=== PATIENT | male | born 1975 | race Caucasian/White ===

== ENCOUNTER 2016-02-25 16:08 | Inpatient (IN) | payer OTHER ==
[2016-02-25] MEDS ORDERED: SODIUM CHLORIDE 1,000 ML IV STA (16:26)
[2016-02-25] MEDS ORDERED: METOCLOPRAMIDE HCL INJECTION 10 MG/2 ML VIAL IVPB ONE ×2 (16:26→23:10)
[2016-02-25] MEDS ORDERED: FAMOTIDINE 20 MG/50 ML IVPB 50 ML IVPB ONE ×2 (16:26→16:30)
[2016-02-25] MEDS ORDERED: METOCLOPRAMIDE HCL INJECTION 10 MG/2 ML VIAL ONE (16:30)
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
[2016-02-25 16:44] VITALS: BMI 22.8
[2016-02-25] MEDS ORDERED: ONDANSETRON 4 MG/2 ML VIAL IVPB ONE ×2 (16:58→20:25)
[2016-02-25] MEDS ORDERED: morphine CARPU-JECT 4 MG/1 ML DISP.SYRIN IVPUSH ONE ×3 (17:20→23:09)
[2016-02-25] MEDS ORDERED: morphine CARPU-JECT 4 MG/1 ML DISP.SYRIN ONE ×2 (17:30→20:26)
[2016-02-25] MEDS ORDERED: ONDANSETRON 4 MG/2 ML VIAL ONE ×2 (17:32→20:26)
[2016-02-25 17:37] LABS: BASOPHIL 0.4 % (0-2.0); MCH 27.5 pg (25.7-33.7); MEAN CELL VOLUME 83.5 fl (80-96); NEUTROPHILS 85.2 % (42.8-82.8); PLATELET COUNT 363 K/MM3 (134-434); RDW 12.6 % (11.9-15.9); WHITE BLOOD COUNT 9.6 K/mm3 (4.0-10.0)
[2016-02-25 18:09] LABS: ALBUMIN 3.4 g/dl (3.4-5.0); ANION GAP 16 (8-16); CALCIUM 8.5 mg/dL (8.5-10.1); CO2 17 mmol/L (21-32); CREATININE 0.7 mg/dL (0.7-1.3); GLUCOSE,RANDOM 279 mg/dL (74-106); SGOT/AST 8 U/L (15-37); SGPT/ALT 24 U/L (12-78)
[2016-02-25 18:14] LABS: ALK PHOS 118 U/L (45-117); BILIRUBIN,TOTAL 0.8 mg/dL (0.2-1.0); TOT PROT 6.8 g/dl (6.4-8.2); TROPONIN I < 0.02 ng/ml (0.00-0.05)
[2016-02-25 19:06] LABS: ACETONE SERUM POSITIVE MODERATE 2 (NEGATIVE)
[2016-02-25] MEDS ORDERED: CEFTRIAXONE 1,000 MG in DEXTROSE 5%-WATER - 50 ML IVPB ONE (20:30)
[2016-02-25] MEDS ORDERED: ACETAMINOPHEN 1000 MG/100 ML VIAL (NON FORMULARY) IVPB ONE (20:30)
[2016-02-25] MEDS ORDERED: CEFTRIAXONE 50 ML ONE (20:33)
[2016-02-25] MEDS ORDERED: ACETAMINOPHEN INJECTION 100 ML IVPB ONE (20:33)
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
[2016-02-25] MEDS ORDERED: morphine CARPU-JECT 4 MG/1 ML DISP.SYRIN IVPUSH PRN (21:53)
[2016-02-25] MEDS ORDERED: ONDANSETRON 4 MG/2 ML VIAL IVPUSH PRN (21:54)
[2016-02-25] MEDS ORDERED: SODIUM CHLORIDE 1,000 ML IV SCH (22:00)
[2016-02-25 22:07] LABS: URINE APPEARANCE CLEAR; URINE BILIRUBIN NEGATIVE (NEGATIVE); URINE COLOR STRAW; URINE GLUCOSE (UA) 3+ (NEGATIVE); URINE KETONE 2+ (NEGATIVE); URINE NITRITE NEGATIVE (NEGATIVE); URINE PROTEIN NEGATIVE (NEGATIVE); URINE UROBILINOGEN NEGATIVE E.U./dl (0.2-1.0)
[2016-02-25 22:22] LABS: URINE BLOOD 1+ (NEGATIVE); URINE LEUK ESTERASE TRACE (NEGATIVE)
[2016-02-25 22:23] LABS: URINE BACTERIA RARE /hpf (NONE SEEN); URINE RBC 3 /hpf (0-3); URINE WBC 4 /hpf (3-5)
[2016-02-26 08:18] LABS: BASOPHIL 0.8 % (0-2.0); EOSINOPHIL 0.1 % (0-4.5); MCH 28.8 pg (25.7-33.7); MCHC 34.2 g/dl (32.0-35.9); MEAN CELL VOLUME 84.2 fl (80-96); MEAN PLT VOLUME 8.2 fl (7.5-11.1); NEUTROPHILS 76.7 % (42.8-82.8); PLATELET COUNT 350 K/MM3 (134-434); RDW 12.8 % (11.9-15.9); WHITE BLOOD COUNT 10.3 K/mm3 (4.0-10.0)
[2016-02-26 08:41] LABS: CALCIUM 8.4 mg/dL (8.5-10.1); CREATININE 0.7 mg/dL (0.7-1.3)
[2016-02-26] MEDS ORDERED: CEFTRIAXONE 50 ML IVPB SCH (10:00)
[2016-02-26] MEDS ORDERED: PANTOPRAZOLE SODIUM 40 MG in SODIUM CHLORIDE 100 ML IVPB SCH (10:00)
[2016-02-26] MEDS ORDERED: FAMOTIDINE 20 MG/50 ML IVPB 50 ML IVPB SCH (10:00)
--- NOTE | 2016-02-26 10:05 | EKG ---
Test Reason : Blood Pressure : / mmHG Vent. Rate : 091 BPM Atrial Rate : 091 BPM P-R Int : 154 ms QRS Dur : 106 ms QT Int : 372 ms P-R-T Axes : 062 093 054 degrees QTc Int : 457 ms NORMAL SINUS RHYTHM RIGHTWARD AXIS BORDERLINE ECG WHEN COMPARED WITH ECG OF 25-FEB-2016 00:34, NO SIGNIFICANT CHANGE WAS FOUND Confirmed by MD MIRANDA, FELICITY ([id number]) on 02/26/2016 10:05:21 AM Referred By: Overread By: FELICITY JEAN MD
--- NOTE | 2016-02-26 10:14 | EKG ---
Test Reason : Blood Pressure : / mmHG Vent. Rate : 062 BPM Atrial Rate : 062 BPM P-R Int : 152 ms QRS Dur : 122 ms QT Int : 442 ms P-R-T Axes : 049 086 054 degrees QTc Int : 448 ms NORMAL SINUS RHYTHM NON-SPECIFIC INTRA-VENTRICULAR CONDUCTION DELAY BORDERLINE ECG WHEN COMPARED WITH ECG OF 25-FEB-2016 17:34, NO SIGNIFICANT CHANGE WAS FOUND Confirmed by MD MIRANDA, FELICITY ([id number]) on 02/26/2016 10:14:19 AM Referred By: DYLAN DE LA GARZA Overread By: FELICITY JEAN MD
[2016-02-26] MEDS ORDERED: INSULIN SLIDING SCALE (NOVOLOG) 1 VIAL SQ SCH ×2 (11:00→16:30)
[2016-02-26] MEDS ORDERED: SODIUM CHLORIDE 1,000 ML IV SCH ×3 (11:13→11:51)
[2016-02-26] MEDS ORDERED: INSULIN DETEMIR 100 UNITS/ML MDV SQ ONE ×2 (12:00→23:00)
[2016-02-26] MEDS: KCL 10 MEQ IVPB 100 ML IVPB SCH ×3 (12:08→14:16)
[2016-02-26] MEDS: METOCLOPRAMIDE HCL INJECTION 10 MG/2 ML VIAL IVPB ONE ×2 (12:25→12:27)
[2016-02-26] MEDS ORDERED: METOCLOPRAMIDE HCL INJECTION 10 MG/2 ML VIAL IVPB ONE (13:00)
[2016-02-26] MEDS ORDERED: INSULIN (NOVOLOG) ASPART 100 UNITS/ML 10ML VIAL ONE (13:02)
[2016-02-26 13:58] LABS: CALCIUM 7.3 mg/dL (8.5-10.1); CREATININE 0.6 mg/dL (0.7-1.3)
[2016-02-26] MEDS ORDERED: cefTRIAXone 1 GM/50 ML BAG (PRE-DOCKED) IVPB ONE (14:00)
[2016-02-26] MEDS ORDERED: CEFTRIAXONE 2 GM in SODIUM CHLORIDE 100 ML IVPB SCH (14:00)
[2016-02-26 14:09] LABS: ARTERIAL BLD GAS O2 SATURATION 98.2 % (90-98.9); ARTERIAL BLOOD GAS BASE EXCESS -13.6 meq/l (-2-2); ARTERIAL BLOOD GAS HCO3 11.4 meq/L (22-26)
[2016-02-26 14:10] LABS: ALLENS TEST POSITIVE; ART PUNCT SITE RIGHT RADIAL; LPM/O2% 21%; PT. ON O2? NO; TYPE OF O2 ROOM AIR
[2016-02-26 14:11] LABS: ARTERIAL BLOOD GAS pH 7.29 (7.35-7.45)
[2016-02-26] MEDS ORDERED: POTASSIUM CHLORIDE TABS 20 MEQ TABLET.ER (FP) PO ONE (14:34)
--- NOTE | 2016-02-26 14:57 | PN ---
Teaching Attending Note Name of Resident: Lukas Mccarty ATTENDING PHYSICIAN STATEMENT I saw and evaluated the patient. I reviewed the resident's note and discussed the case with the resident. I agree with the resident's findings and plan as documented. SUBJECTIVE: no fever or chills , has nausea and vomiting. has burning like chest pain all over R and L chest wall, radiating form epigastric area. denies dysuria or abd pain , no flank pain . no SOB OBJECTIVE: mild distress, vomiting at time of evaluation . AAOx3. HEENT: dry MM, pale , no LAP in neck , no facial droop CV: RRR, tachy Lungs : CTAB Abd : soft, NT, ND , NL BS . no CVA tenderness Ext : no edema ASSESSMENT AND PLAN: 40 y/o man with h/o untreated DM , who presented to ER on 02/23, diagnosed with UTI, dc on bactrim , but came back with N/V . He was found to have signs of pyelonephritis of L kidney on CT scan , also elevated sugar 1- Acute pyelonephritis : UA , and U cx from 02/23 reviewed. Group B strep growing . - cont with Ceftriaoxne - follow blood cx and final urine cx . - repeat imaging if fails to respond. 2- Untreated Dm , now in DKA, due to infection . also looks volume depleted on exam . sugar is 228, and AG increased to 21. ABG with metabolic acidosis - Start D5NS+Kcl @150 - Start insulin gtt 0.1 unit /kg/hr - Check gluc , BMP, Phos, MG q 2 hrs - Once AG is closed , can stop gtt and start SQ insulin ( long and short acting ) - Currently receiving IV Kck, will give 40 of po Kcl before starting the gtt - pt educated about need of DM treatment 3- Nicotine dependence 3/p/d - start Nicotin patch 4- dispo : transfer to ICU. spoke toDr. Cueva. pt accepted Critical Care Time/MDM Note Total Critical Care Time: 45 Critical Care Statement: The care of this patient involved high complexity decision making to prevent further life threatening deterioration of the patient 's condition and/or to evalute & treat vital organ system(s) failure or risk of failure.
--- NOTE | 2016-02-26 15:00 | PN ---
Addendum entered and electronically signed by Lukas Mccarty, RES 02/26/16 18:23 : anion gap closed, will swicth him from insulin drip to sq, change d5ns to ns Original Note: Physical Exam: SUBJECTIVE: Patient seen and examined, patient examined in morning was still complaing of nausea and vomiting. patient vomited in front of me which contain white color gastric fluid. Patient also state he had chest pain but its burning in nature, but stat ekg was done which showed sinus tachycardia. Patient blood sugar was checked and which was around 255, and anion gap was 17, K 3.3. patient started on IV fluid Ns at 100ml/hr and iV KCL was was ordered. Patient given insulin novalog and levemir sq. labs were repeat at 1 pm, patient gap increased to 21 and blood sugar decreased to 228, Patient K increased to 3.4 after getting 20meq of iv kcl and third one is in situ. patient vomiting has stopped so 40 meq oral was also given. ABG was done which showed a Ph of 7.29, bicard 11.4. decesion taken to shift patient to ICu to start on insulin drip, DNS with kcl, bgm monitoring, k , ca, mg and phos monitoring. Acetone moderate. OBJECTIVE: Vital Signs Period Temp Pulse Resp BP Sys/[place] Pulse Ox Last 24 Hr 98.3 F-98.4 F 76-81 18-20 98-152/59-92 98-98 GENERAL: The patient is awake, alert, and fully oriented, complaining of nausea HEAD: Normal with no signs of trauma. EYES: PERRL, extraocular movements intact, sclera anicteric, conjunctiva clear. No ptosis. ENT: Ears normal, nares patent, oropharynx clear without exudates, dry mucus membrane NECK: Trachea midline, full range of motion, supple. LUNGS: Breath sounds equal, clear to auscultation bilaterally, no wheezes, no crackles, HEART: tachcardia, S1, S2 normal without murmur, rub or gallop. ABDOMEN: Soft, nontender, nondistended, normoactive bowel sounds, no guarding, midline scar present from previous surgery. no renal geoff tenderness EXTREMITIES: 2+ pulses, warm, well-perfused, no edema. NEUROLOGICAL: Cranial nerves II through XII grossly intact., gait not observed. PSYCH: Normal mood, normal affect. SKIN: Warm, dry, normal turgor, no rashes or lesions noted Laboratory Results - last 24 hr 02/25/16 02/26/16 02/26/16 22:22 06:03 07:45 WBC 10.3 H RBC 4.70 Hgb 13.5 Hct 39.6 MCV 84.2 MCHC 34.2 RDW 12.8 Plt Count 350 MPV 8.2 Neutrophils % 76.7 Lymphocytes % 17.5 D Monocytes % 4.9 D Eosinophils % 0.1 D Basophils % 0.8 Puncture Site ABG pH ABG pCO2 at Pt Temp ABG pO2 at Pt Temp ABG HCO3 ABG O2 Sat (Measured) ABG O2 Content ABG Base Excess Andrea Test O2 Delivery Device Oxygen Flow Rate Sodium Potassium Chloride Carbon Dioxide Anion Gap BUN Creatinine POC Glucometer 212 Random Glucose Hemoglobin A1c % Lactic Acid 1.387 Calcium 02/26/16 02/26/16 02/26/16 07:45 07:45 12:58 WBC RBC Hgb Hct MCV MCHC RDW Plt Count MPV Neutrophils % Lymphocytes % Monocytes % Eosinophils % Basophils % Puncture Site ABG pH ABG pCO2 at Pt Temp ABG pO2 at Pt Temp ABG HCO3 ABG O2 Sat (Measured) ABG O2 Content ABG Base Excess Andrea Test O2 Delivery Device Oxygen Flow Rate Sodium 136 Potassium 3.3 L Chloride 107 Carbon Dioxide 12 L D Anion Gap 17 H BUN 10 D Creatinine 0.7 POC Glucometer 255 Random Glucose 255 H Hemoglobin A1c % 13.2 H Lactic Acid Calcium 8.4 L 02/26/16 02/26/16 13:10 13:55 WBC RBC Hgb Hct MCV MCHC RDW Plt Count MPV Neutrophils % Lymphocytes % Monocytes % Eosinophils % Basophils % Puncture Site Right radial ABG pH 7.29 L ABG pCO2 at Pt Temp 24.6 L ABG pO2 at Pt Temp 133.0 H ABG HCO3 11.4 L* ABG O2 Sat (Measured) 98.2 ABG O2 Content 17.2 ABG Base Excess -13.6 L* Andrea Test Positive O2 Delivery Device Room air Oxygen Flow Rate 21% Sodium 141 Potassium 3.4 L Chloride 107 Carbon Dioxide 13 L Anion Gap 21 H BUN 10 Creatinine 0.6 L POC Glucometer Random Glucose 299 H Hemoglobin A1c % Lactic Acid Calcium 7.3 L ABG Results ABG pH 7.29 (7.35-7.45) L 02/26/16 13:55 ABG pCO2 at Pt Temp 24.6 mmHg (35-45) L 02/26/16 13:55 ABG pO2 at Pt Temp 133.0 mmHg (80-100) H 02/26/16 13:55 ABG HCO3 11.4 meq/L (22-26) L* 02/26/16 13:55 ABG O2 Sat (Measured) 98.2 % (90-98.9) 02/26/16 13:55 ABG O2 Content 17.2 % vol (15-22) 02/26/16 13:55 ABG Base Excess -13.6 meq/l (-2-2) L* 02/26/16 13:55 Active Medications Generic Name Dose Route Start Last Admin Trade Name Freq PRN Reason Stop Dose Admin Famotidine/Sodium Chloride 50 mls @ 100 mls/hr 02/26/16 10:00 02/26/16 12:10 Pepcid 20 Mg Premixed Ivpb - IVPB 100 mls/hr BID OSIRIS Administration Ceftriaxone Sodium 2 gm/ 100 mls @ 200 mls/hr 02/26/16 14:00 Sodium Chloride IVPB DAILY OSIRIS Sodium Chloride 1,000 mls @ 150 mls/hr 02/26/16 11:51 02/26/16 12:10 Normal Saline - IV 150 mls/hr ASDIR OSIRIS Administration Insulin Aspart 1 vial 02/26/16 11:00 02/26/16 13:12 Novolog Vial Sliding Scale - SQ 6 units ACHS OSIRIS Administration Protocol Ondansetron HCl 4 mg 02/25/16 21:54 02/26/16 06:39 Zofran Injection IVPUSH 4 mg Q6H PRN Administration NAUSEA AND/OR VOMITING ASSESSMENT/PLAN: This is a 40 year old male with a PMHx of: Diabetes Mellitus ( untreated). Who presents to the ED with nausea, vomiting. Admitted for Pyelonephritis, Uncontrolled DM Pain abdomen; could be due to diabetic ketoacidosis started on insulin drip started on D5 NS with 20meq of potassium as last blood sugar is 228 anion gap 21 monitor blood sugar, ca, mg, phos , k q2h monitor vitals monitor intake and output patient shifted to ICU Pyelonephritis started on ceftrixaone 2gm daily urine from last admission ie 02/23 show . 90 wbc in urine urine culture strep aglactaie, Hypokalemia. : patient recieved 30meq 1v and 40 mq oral repeat k q2h, untreated DM with hyperglycemia patient shifted to insulin drip due to ketoacidosis Once Anion gap is closed , stop insulin drip and start SQ insulin ( long and short acting ) monitor blood sugar q2h diabetic diet fluid: d5ns with 20meq at 150ml/hr electrolyte: hypokalemia: monitor sr kotassium q2h nutrition; clear liquid diabetic pro dvt: ambilatory Gi on pepcid dispo: transferred to ICU Visit type - Emergency Visit Emergency Visit: Yes ED Registration Date: 02/25/16 Care time: The patient presented to the Emergency Department on the above date and was hospitalized for further evaluation of their emergent condition. - New Patient This patient is new to me today: Yes Date on this admission: 02/26/16 - Critical Care Critical Care patient: No
[2016-02-26] MEDS ORDERED: D5-NS + 20 MEQ KCL - 1,000 ML IV SCH ×3 (15:15→16:23)
[2016-02-26] MEDS ORDERED: INSULIN REGULAR 100 UNITS in SODIUM CHLORIDE 99 ML IVPB SCH ×3 (15:15→16:37)
[2016-02-26 17:09] LABS: CALCIUM 7.3 mg/dL (8.5-10.1); CREATININE 0.5 mg/dL (0.7-1.3); MAGNESIUM 1.8 mg/dL (1.8-2.4); PHOSPHOROUS 2.5 mg/dL (2.5-4.9)
[2016-02-26] MEDS ORDERED: SODIUM CHLORIDE 1,000 ML with POTASSIUM CHLORIDE 40 MEQ IVPB SCH (18:15)
[2016-02-26] MEDS: ONDANSETRON 4 MG/2 ML VIAL IVPUSH PRN (18:20)
[2016-02-26] MEDS: SODIUM CHLORIDE 1,000 ML IV SCH (18:21)
[2016-02-26] MEDS ORDERED: METOCLOPRAMIDE HCL INJECTION 10 MG/2 ML VIAL IVPUSH ONE (19:47)
[2016-02-26] MEDS ORDERED: morphine CARPU-JECT 4 MG/1 ML DISP.SYRIN IVPUSH ONE (19:48)
[2016-02-26 20:44] LABS: CALCIUM 7.7 mg/dL (8.5-10.1); CREATININE 0.5 mg/dL (0.7-1.3); MAGNESIUM 1.8 mg/dL (1.8-2.4); PHOSPHOROUS 2.2 mg/dL (2.5-4.9)
[2016-02-26] MEDS: FAMOTIDINE 20 MG/50 ML IVPB 50 ML IVPB SCH (21:31)
[2016-02-26 22:34] LABS: CREATININE 0.5 mg/dL (0.7-1.3)
[2016-02-26] MEDS: INSULIN SLIDING SCALE (NOVOLOG) 1 VIAL SQ SCH (22:37)
[2016-02-27] MEDS ORDERED: morphine CARPU-JECT 4 MG/1 ML DISP.SYRIN IVPUSH PRN (00:05)
[2016-02-27] MEDS ORDERED: METOCLOPRAMIDE HCL INJECTION 10 MG/2 ML VIAL IVPUSH STA (05:53)
[2016-02-27 05:56] LABS: BASOPHIL 0.4 % (0-2.0); MCH 27.7 pg (25.7-33.7); MCHC 33.2 g/dl (32.0-35.9); MEAN CELL VOLUME 83.5 fl (80-96); MEAN PLT VOLUME 8.1 fl (7.5-11.1); NEUTROPHILS 80.5 % (42.8-82.8); PLATELET COUNT 317 K/MM3 (134-434); RDW 12.9 % (11.9-15.9); WHITE BLOOD COUNT 10.5 K/mm3 (4.0-10.0)
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
[2016-02-27 06:15] LABS: CALCIUM 7.9 mg/dL (8.5-10.1); CREATININE 0.5 mg/dL (0.7-1.3)
[2016-02-27] MEDS: SODIUM CHLORIDE 1,000 ML IV SCH ×2 (06:15→08:37)
[2016-02-27] MEDS ORDERED: HYDROmorphone HCL CARPU-JECT 2 MG/1 ML DISP.SYRIN IVPUSH STA (06:43)
[2016-02-27] MEDS: INSULIN SLIDING SCALE (NOVOLOG) 1 VIAL SQ SCH ×4 (06:56→21:32)
[2016-02-27] MEDS ORDERED: HYDROmorphone HCL CARPU-JECT 2 MG/1 ML DISP.SYRIN IVPUSH SCH (07:15)
[2016-02-27] MEDS ORDERED: HYDROmorphone HCL CARPU-JECT 2 MG/1 ML DISP.SYRIN IVPUSH PRN (08:01)
[2016-02-27] MEDS ORDERED: PT OWN MED DRAWER 7, Y5N ONE (08:56)
[2016-02-27] MEDS ORDERED: CEFTRIAXONE 2 GM in DEXTROSE 5%-WATER - 100 ML IVPB SCH (10:00)
[2016-02-27] MEDS: NICOTINE 21 MG/24 HOURS TOPICAL PATCH TD SCH (10:49)
[2016-02-27] MEDS: CEFTRIAXONE 100 ML IVPB SCH (10:51)
[2016-02-27] MEDS: FAMOTIDINE 20 MG/50 ML IVPB 50 ML IVPB SCH ×2 (10:55→21:29)
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
[2016-02-27] MEDS ORDERED: POTASSIUM CHLORIDE 40 MEQ in SODIUM CHLORIDE 1,000 ML IVPB SCH ×2 (12:00→16:45)
[2016-02-27] MEDS: HYDROmorphone HCL CARPU-JECT 1 MG/1 ML DISP.SYRIN IVPUSH PRN (15:21)
[2016-02-27] MEDS: ONDANSETRON 4 MG/2 ML VIAL IVPUSH PRN ×3 (15:21→21:52)
--- NOTE | 2016-02-27 15:25 | PN ---
Physical Exam: SUBJECTIVE: Patient seen and examined Patient is a 40yo male c/o having left sided chest pain radiating to his back after having lunch. No fever or chills, no shortness of breath. Feeling nauseas after having food in his system. Elevated blood pressure at the time of food. OBJECTIVE: Vital Signs Temperature 99.2 F 02/27/16 14:00 Pulse Rate 68 02/27/16 14:00 Respiratory Rate 18 02/27/16 14:00 Blood Pressure 141/89 02/27/16 14:00 O2 Sat by Pulse Oximetry (%) 97 02/27/16 08:03 GENERAL: The patient is awake, alert, and fully oriented, in no acute distress. HEAD: Normal with no signs of trauma. EYES: PERRL, extraocular movements intact, sclera anicteric, conjunctiva clear. No ptosis. ENT: Ears normal, nares patent, oropharynx clear without exudates, moist mucous membranes. NECK: Trachea midline, full range of motion, supple. LUNGS: Breath sounds equal, clear to auscultation bilaterally, no wheezes, no crackles, no accessory muscle use. HEART: Regular rate and rhythm, S1, S2 positive without murmur, rub or gallop. ABDOMEN: Soft, nontender, nondistended, normoactive bowel sounds, no guarding, no rebound, no hepatosplenomegaly, no masses. EXTREMITIES: 2+ pulses, warm, well-perfused, no edema. NEUROLOGICAL: Cranial nerves II through XII grossly intact. Normal speech, gait is stable. PSYCH: Normal mood, normal affect. SKIN: Warm, dry, normal turgor, no rashes or lesions noted Laboratory Results - last 24 hr 02/26/16 02/26/16 02/26/16 14:28 16:15 17:35 WBC RBC Hgb Hct MCV MCHC RDW Plt Count MPV Neutrophils % Lymphocytes % Monocytes % Eosinophils % Basophils % Sodium 138 Potassium 3.6 Chloride 110 H Carbon Dioxide 17 L D Anion Gap 11 BUN 9 Creatinine 0.5 L POC Glucometer [phone] Random Glucose 242 H Calcium 7.3 L Phosphorus 2.5 Magnesium 1.8 02/26/16 02/26/16 02/26/16 19:25 19:45 21:45 WBC RBC Hgb Hct MCV MCHC RDW Plt Count MPV Neutrophils % Lymphocytes % Monocytes % Eosinophils % Basophils % Sodium 138 138 Potassium 3.5 3.6 Chloride 110 H 109 H Carbon Dioxide 18 L 17 L Anion Gap 10 12 BUN 7 D 7 Creatinine 0.5 L 0.5 L POC Glucometer [phone] Random Glucose 211 H 214 H Calcium 7.7 L 8.0 L Phosphorus 2.2 L Magnesium 1.8 02/27/16 02/27/16 02/27/16 05:15 05:15 05:58 WBC 10.5 H RBC 4.37 Hgb 12.1 D Hct 36.4 MCV 83.5 MCHC 33.2 RDW 12.9 Plt Count 317 MPV 8.1 Neutrophils % 80.5 Lymphocytes % 15.0 Monocytes % 4.1 Eosinophils % 0.0 D Basophils % 0.4 Sodium 142 Potassium 3.4 L Chloride 110 H Carbon Dioxide 23 D Anion Gap 9 BUN 7 Creatinine 0.5 L POC Glucometer [phone] Random Glucose 137 H D Calcium 7.9 L Phosphorus Magnesium 02/27/16 11:13 WBC RBC Hgb Hct MCV MCHC RDW Plt Count MPV Neutrophils % Lymphocytes % Monocytes % Eosinophils % Basophils % Sodium Potassium Chloride Carbon Dioxide Anion Gap BUN Creatinine POC Glucometer [phone] Random Glucose Calcium Phosphorus Magnesium Active Medications Generic Name Dose Route Start Last Admin Trade Name Freq PRN Reason Stop Dose Admin Hydromorphone HCl 1 mg 02/27/16 07:13 Dilaudid Injection - IVPUSH Q4H PRN PAIN LEVEL 1-5 Hydromorphone HCl 2 mg 02/27/16 08:01 Dilaudid Injection - IVPUSH Q6H PRN Famotidine/Sodium Chloride 50 mls @ 100 mls/hr 02/26/16 22:00 02/27/16 10:55 Pepcid 20 Mg Premixed Ivpb - IVPB 100 mls/hr BID OSIRIS Administration Ceftriaxone Sodium 100 mls @ 200 mls/hr 02/27/16 10:00 02/27/16 10:51 Rocephin 2gm Ivpb (Pre-Docked) IVPB 200 mls/hr DAILY OSIRIS Administration Potassium Chloride 40 meq/ 1,020 mls @ 150 mls/hr 02/27/16 12:00 02/27/16 14:20 Sodium Chloride IVPB 150 mls/hr Q6H OSIRIS Administration Insulin Aspart 1 vial 02/27/16 16:30 Novolog Vial Sliding Scale - SQ TIDAC [facility] Protocol Insulin Aspart 1 vial 02/27/16 22:00 Novolog Vial Sliding Scale - SQ HS [facility] Protocol Insulin Detemir 10 units 02/27/16 22:00 Levemir Vial SQ HS OSIRIS Nicotine 21 mg 02/27/16 10:00 02/27/16 10:49 Nicoderm Patch - TD 21 mg DAILY OSIRIS Administration Ondansetron HCl 4 mg 02/26/16 16:09 02/27/16 00:00 Zofran Injection IVPUSH 4 mg Q6H PRN Administration NAUSEA AND/OR VOMITING Medication Instructions Recorded Sulfamethoxazole/Trimethoprim 1 tab PO BID #9 tablet 02/25/16 [Bactrim Ds -] Microbiology 02/25/16 21:53 Urine - Urine Clean Catch Urine Culture - Final NO GROWTH OBTAINED 02/25/16 22:22 Blood - Peripheral Venous Blood Culture - Preliminary NO GROWTH OBTAINED AFTER 24 HOURS, INCUBATION TO CONTINUE FOR 4 DAYS. 02/25/16 22:22 Blood - Peripheral Venous Blood Culture - Preliminary NO GROWTH OBTAINED AFTER 24 HOURS, INCUBATION TO CONTINUE FOR 4 DAYS. ASSESSMENT/PLAN: 40 y/o man with h/o untreated DM , who presented to ER on 02/23, diagnosed with UTI, dc on bactrim , but came back with N/V . He was found to have signs of pyelonephritis of L kidney on CT scan , also elevated sugar Came to examine the patient , patient started to complain of having chest pain post eating, had chicken broth. # Acute chest pain r/o Acs, ekg stat, Abg stat, Trops x2 q6h, EKG reviewed NSR rate 68, no ST elevation or depression Dilaudid for pain, Zofran prn, NPO for now, if pain persists will get CTA of the chest, avoiding contrast for now since patient is diabetic and admitted for Pylenephritis. # Acute pyelonephritis : UA , and U cx from 02/23 reviewed. Group B strep growing . cont with Ceftriaoxne No growth so far urine and blood . repeat imaging if fails to respond. # Untreated Dm , s/p DKA, due to infection . Sliding scale with coverage # Nicotine dependence 3/p/d start Nicotine patch DVT Px: lovenox 40mg sq Visit type - Emergency Visit Emergency Visit: Yes ED Registration Date: 02/25/16 Care time: The patient presented to the Emergency Department on the above date and was hospitalized for further evaluation of their emergent condition. - New Patient This patient is new to me today: Yes Date on this admission: 02/27/16 - Critical Care Critical Care patient: Yes Total Critical Care Time (in minutes): 35 Critical Care Statement: The care of this patient involved high complexity decision making to prevent further life threatening deterioration of the patient 's condition and/or to evalute & treat vital organ system(s) failure or risk of failure. - Discharge Referral Referred to [facility] Med P.C.: Yes
[2016-02-27 16:14] LABS: AMYLASE 42 U/L (25-115)
[2016-02-27 16:17] LABS: ALBUMIN 3.1 g/dl (3.4-5.0); ANION GAP 10 (8-16); BILIRUBIN,TOTAL 0.4 mg/dL (0.2-1.0); CO2 21 mmol/L (21-32); CREATININE 0.4 mg/dL (0.7-1.3); GLUCOSE,RANDOM 152 mg/dL (74-106); MAGNESIUM 1.9 mg/dL (1.8-2.4); PHOSPHOROUS 1.9 mg/dL (2.5-4.9); SGOT/AST 6 U/L (15-37); SGPT/ALT 17 U/L (12-78); TOT PROT 6.1 g/dl (6.4-8.2)
[2016-02-27 16:20] LABS: ALK PHOS 80 U/L (45-117); TROPONIN I < 0.02 ng/ml (0.00-0.05)
[2016-02-27 17:17] LABS: ARTERIAL BLD GAS O2 SATURATION 98.1 % (90-98.9); ARTERIAL BLOOD GAS BASE EXCESS -2.2 meq/l (-2-2); ARTERIAL BLOOD GAS HCO3 21.5 meq/L (22-26)
[2016-02-27 17:19] LABS: ALLENS TEST POSITIVE; ART PUNCT SITE RIGHT RADIAL; LPM/O2% 21%; PT. ON O2? NO
[2016-02-27] MEDS ORDERED: SODIUM CHLORIDE 500 ML with POTASSIUM PHOSPHATE 30 MM IVPB SCH (17:45)
[2016-02-27] MEDS ORDERED: POTASSIUM PHOSPHATE 30 MM in SODIUM CHLORIDE 500 ML IVPB ONE (18:00)
[2016-02-27] MEDS ORDERED: METOCLOPRAMIDE HCL INJECTION 10 MG/2 ML VIAL IVPUSH ONE (18:16)
[2016-02-27] MEDS: HYDROmorphone HCL CARPU-JECT 1 MG/1 ML DISP.SYRIN IVPB PRN (19:40)
[2016-02-27] MEDS: INSULIN DETEMIR 100 UNITS/ML MDV SQ SCH (21:31)
[2016-02-27 21:44] LABS: TROPONIN I < 0.02 ng/ml (0.00-0.05)
[2016-02-27] MEDS ORDERED: ACETAMINOPHEN 325 MG TABLET (FP) PO PRN (22:08)
[2016-02-28] MEDS ORDERED: diazePAM CARPU-JECT 10 MG/2 ML DISP.SYRIN ONE (02:15)
[2016-02-28] MEDS ORDERED: diazePAM CARPU-JECT 10 MG/2 ML DISP.SYRIN IVPUSH ONE (03:00)
[2016-02-28] MEDS: ONDANSETRON 4 MG/2 ML VIAL IVPUSH PRN (05:59)
[2016-02-28] MEDS: INSULIN SLIDING SCALE (NOVOLOG) 1 VIAL SQ SCH ×4 (06:07→21:34)
[2016-02-28] MEDS: HYDROmorphone HCL CARPU-JECT 1 MG/1 ML DISP.SYRIN IVPUSH PRN (08:08)
--- NOTE | 2016-02-28 09:15 | PN ---
Progress Note (short form) - Note Progress Note: PULM/CCM Pt seen and examined in ICU 24Hr: lots N/V overnight c/w gastropareis narcotic seemed to be making worse tremulous , uncomfortable, per family hx of significant ETOH, 1 dose valium with improvement stable otherwise Active Medications Acetaminophen (Tylenol -) 650 mg PO Q4H PRN PRN Reason: FEVER OR PAIN Hydromorphone HCl (Dilaudid Injection -) 1 mg IVPUSH Q4H PRN PRN Reason: PAIN LEVEL 1-5 Last Admin: 02/28/16 08:08 Dose: 1 mg Hydromorphone HCl (Dilaudid Injection -) 0.5 mg IVPB Q2H PRN PRN Reason: PAIN LEVEL 6-10 Last Admin: 02/27/16 19:40 Dose: 0.5 mg Famotidine/Sodium Chloride (Pepcid 20 Mg Premixed Ivpb -) 50 mls @ 100 mls/hr IVPB BID [facility] Last Admin: 02/27/16 21:29 Dose: 100 mls/hr Ceftriaxone Sodium (Rocephin 2gm Ivpb (Pre-Docked)) 100 mls @ 200 mls/hr IVPB DAILY [facility] Last Admin: 02/27/16 10:51 Dose: 200 mls/hr Insulin Aspart (Novolog Vial Sliding Scale -) 1 vial SQ TIDAC [facility] PRN Reason: Protocol Last Admin: 02/28/16 06:07 Dose: Not Given Insulin Aspart (Novolog Vial Sliding Scale -) 1 vial SQ HS [facility] PRN Reason: Protocol Last Admin: 02/27/16 21:32 Dose: Not Given Insulin Detemir (Levemir Vial) 10 units SQ HS [facility] Last Admin: 02/27/16 21:31 Dose: 10 units Nicotine (Nicoderm Patch -) 21 mg TD DAILY [facility] Last Admin: 02/27/16 10:49 Dose: 21 mg Ondansetron HCl (Zofran Injection) 4 mg IVPUSH Q6H PRN PRN Reason: NAUSEA AND/OR VOMITING Last Admin: 02/28/16 05:59 Dose: 4 mg Vital Signs Temp 98.8 F 02/28/16 06:00 Pulse 66 02/28/16 08:00 Resp 12 02/28/16 08:00 BP 131/86 02/28/16 08:00 Pulse Ox 100 02/28/16 07:51 Intake & Output 02/27/16 02/27/16 02/28/16 11:59 23:59 11:59 Intake Total 1850 1900 2300 Output Total 500 1650 1600 Balance 1350 250 700 Weight 59.959 kg Intake: IV 1800 1650 2300 Normal Saline - 1,000 ml 1800 1800 @ 150 mls/hr IV ASDIR [facility] Rx#:[id number] Normal Saline - 1,000 ml 1650 @ 150 mls/hr IVPB [facility]IR [facility] with KCl - 40 Meq Rx# :[id number] Normal Saline - 500 ml @ 500 50 mls/hr IVPB ASDIR [facility] with Kphos - 30 mm Rx#: [id number] IVPB 50 250 Output: Urine 500 1650 1600 Void 500 1650 1600 Other: Voiding Method Urinal Urinal # Unmeasured Voids Void 3 Bowel Movement No No Weight Measurement Method Built in [facility] CBC, BMP 02/27/16 05:15 02/27/16 15:35 Constitutional: Yes: Well Nourished, No Distress, Calm Eyes: Yes: WNL, Conjunctiva Clear, EOM Intact, Other (Dry) HENT: Yes: WNL, Atraumatic, Normocephalic Neck: Yes: WNL, Supple, Trachea Midline Cardiovascular: Yes: WNL, Regular Rate and Rhythm Respiratory: Yes: WNL, Regular, CTA Bilaterally Gastrointestinal: Yes: Soft, Hypoactive Bowel Sounds, Tenderness, Vomiting. No : Hematemesis, Tenderness, Rebound ...Rectal Exam: Yes: Deferred Renal/: Yes: CVA Tenderness - Left Breast(s): Yes: WNL Musculoskeletal: Yes: WNL Extremities: Yes: Other (Notice dark lesions --> LE B/L (Venous stasis vs KS- Like lesions??)) Edema: No Integumentary: Yes: Body Piercing, Tattoos Neurological: Yes: WNL, Alert, Oriented ...Motor Strength: WNL Psychiatric: Yes: WNL, Alert, Oriented A/P 40 y/o man, DM, p/w pyleonephritis, hyperglycemia and gastroparesis now improved with glucose control, abx and supportive care -ceftriaxone -insulin, glucose control -start clear diet, advance as tolerated -anti-emetics as needed -stop IV opiates, may be negatively effecting gastroparesis -OOB to chair -to floor and ? D/c home tomorrow Toño ACNP [id number]
--- NOTE | 2016-02-28 09:17 | PN ---
Progress Note (short form) - Note Progress Note: Patient is in ICU Overnight events noted. Patient is feeling better, NAD , started to eat without any problems Vital Signs Temperature 98.8 F 02/28/16 06:00 Pulse Rate 66 02/28/16 08:00 Respiratory Rate 12 02/28/16 08:00 Blood Pressure 131/86 02/28/16 08:00 O2 Sat by Pulse Oximetry (%) 100 02/28/16 07:51 GENERAL: The patient is awake, alert, and fully oriented, in no acute distress. HEAD: Normal with no signs of trauma. EYES: PERRL, extraocular movements intact, sclera anicteric, conjunctiva clear. No ptosis. ENT: Ears normal, nares patent, oropharynx clear without exudates, moist mucous membranes. NECK: Trachea midline, full range of motion, supple. LUNGS: Breath sounds equal, clear to auscultation bilaterally, no wheezes, no crackles, no accessory muscle use. HEART: Regular rate and rhythm, S1, S2 positive without murmur, rub or gallop. ABDOMEN: Soft, nontender, nondistended, normoactive bowel sounds, no guarding, no rebound, no hepatosplenomegaly, no masses. EXTREMITIES: 2+ pulses, warm, well-perfused, no edema. NEUROLOGICAL: Cranial nerves II through XII grossly intact. Normal speech, gait is stable. PSYCH: Normal mood, normal affect. SKIN: Warm, dry, normal turgor, no rashes or lesions noted CBCD WBC 10.5 K/mm3 (4.0-10.0) H 02/27/16 05:15 RBC 4.37 M/mm3 (4.00-5.60) 02/27/16 05:15 Hgb 12.1 GM/dL (11.7-16.9) D 02/27/16 05:15 Hct 36.4 % (35.4-49) 02/27/16 05:15 MCV 83.5 fl (80-96) 02/27/16 05:15 MCHC 33.2 g/dl (32.0-35.9) 02/27/16 05:15 RDW 12.9 % (11.9-15.9) 02/27/16 05:15 Plt Count 317 K/MM3 (134-434) 02/27/16 05:15 MPV 8.1 fl (7.5-11.1) 02/27/16 05:15 CMP Sodium 136 mmol/L (136-145) 02/27/16 15:35 Potassium 2.8 mmol/L (3.5-5.1) L* 02/27/16 15:35 Chloride 105 mmol/L (98-107) 02/27/16 15:35 Carbon Dioxide 21 mmol/L (21-32) 02/27/16 15:35 Anion Gap 10 (8-16) 02/27/16 15:35 BUN 6 mg/dL (7-18) L 02/27/16 15:35 Creatinine 0.4 mg/dL (0.7-1.3) L 02/27/16 15:35 Creat Clearance w eGFR > 60 (>60) 02/27/16 15:35 Random Glucose 152 mg/dL (74-106) H 02/27/16 15:35 Calcium 8.0 mg/dL (8.5-10.1) L 02/27/16 15:35 Total Bilirubin 0.4 mg/dL (0.2-1.0) D 02/27/16 15:35 AST 6 U/L (15-37) L D 02/27/16 15:35 ALT 17 U/L (12-78) D 02/27/16 15:35 Alkaline Phosphatase 80 U/L (45-117) D 02/27/16 15:35 Total Protein 6.1 g/dl (6.4-8.2) L 02/27/16 15:35 Albumin 3.1 g/dl (3.4-5.0) L 02/27/16 15:35 CARDIAC ENZYMES Creatine Kinase 46 IU/L (39-308) 02/27/16 21:00 Troponin I < 0.02 ng/ml (0.00-0.05) 02/27/16 21:00 Current Medications Generic Name Dose Route Start Last Admin Trade Name Freq PRN Reason Stop Dose Admin Acetaminophen 650 mg 02/27/16 22:08 Tylenol - PO Q4H PRN FEVER OR PAIN Hydromorphone HCl 0.5 mg 02/27/16 15:38 02/27/16 19:40 Dilaudid Injection - IVPB 0.5 mg Q2H PRN Administration PAIN LEVEL 6-10 Famotidine/Sodium Chloride 50 mls @ 100 mls/hr 02/26/16 22:00 02/27/16 21:29 Pepcid 20 Mg Premixed Ivpb - IVPB 100 mls/hr BID [facility] Administration Ceftriaxone Sodium 100 mls @ 200 mls/hr 02/27/16 10:00 02/27/16 10:51 Rocephin 2gm Ivpb (Pre-Docked) IVPB 200 mls/hr DAILY [facility] Administration Potassium Chloride 100 mls @ 100 mls/hr 02/28/16 09:30 Potassium Chloride 10 Meq Premix Ivpb - IVPB 02/28/16 12:29 Q60M [facility] Insulin Aspart 1 vial 02/27/16 16:30 02/28/16 06:07 Novolog Vial Sliding Scale - SQ Not Given TIDAC [facility] Protocol Insulin Aspart 1 vial 02/27/16 22:00 02/27/16 21:32 Novolog Vial Sliding Scale - SQ Not Given HS [facility] Protocol Insulin Detemir 10 units 02/27/16 22:00 02/27/16 21:31 Levemir Vial SQ 10 units HS [facility] Administration Nicotine 21 mg 02/27/16 10:00 02/27/16 10:49 Nicoderm Patch - TD 21 mg DAILY [facility] Administration Ondansetron HCl 4 mg 02/26/16 16:09 02/28/16 05:59 Zofran Injection IVPUSH 4 mg Q6H PRN Administration NAUSEA AND/OR VOMITING Medication Instructions Recorded Sulfamethoxazole/Trimethoprim 1 tab PO BID #9 tablet 02/25/16 [Bactrim Ds -] ASSESSMENT/PLAN: 40 y/o man with h/o untreated DM , who presented to ER on 02/23, diagnosed with UTI, dc on bactrim , but came back with N/V . He was found to have signs of pyelonephritis of L kidney on CT scan , also elevated sugar # Acute Nausea and vomiting due to Gastroparesis improving post Reglan than Zofran # Electrolyte Imbalance : replete phos and potassium # Acute chest pain , with negative trops. # Acute pyelonephritis : UA , and U cx from 02/23 reviewed. Group B strep growing . cont with Ceftriaoxne No growth so far urine and blood . repeat imaging if fails to respond. # Untreated Dm , s/p DKA, due to infection . Sliding scale with coverage # Nicotine dependence 3cpd start Nicotine patch DVT Px: lovenox 40mg sq Tx patient to the floor Visit type - Emergency Visit Emergency Visit: Yes ED Registration Date: 02/25/16 Care time: The patient presented to the Emergency Department on the above date and was hospitalized for further evaluation of their emergent condition. - New Patient This patient is new to me today: No - Critical Care Critical Care patient: No
[2016-02-28] MEDS: NICOTINE 21 MG/24 HOURS TOPICAL PATCH TD SCH (09:56)
[2016-02-28] MEDS: FAMOTIDINE 20 MG/50 ML IVPB 50 ML IVPB SCH ×2 (09:56→21:37)
[2016-02-28] MEDS: CEFTRIAXONE 100 ML IVPB SCH (09:57)
[2016-02-28 10:57] LABS: CREATININE 0.4 mg/dL (0.7-1.3)
[2016-02-28] MEDS: KCL 10 MEQ IVPB 100 ML IVPB SCH ×3 (11:15→14:08)
--- NOTE | 2016-02-28 13:16 | EKG ---
Test Reason : Blood Pressure : / mmHG Vent. Rate : 068 BPM Atrial Rate : 068 BPM P-R Int : 144 ms QRS Dur : 108 ms QT Int : 422 ms P-R-T Axes : 018 057 040 degrees QTc Int : 448 ms NORMAL SINUS RHYTHM NORMAL ECG WHEN COMPARED WITH ECG OF 26-FEB-2016 09:25, NO SIGNIFICANT CHANGE WAS FOUND Confirmed by MD MIRANDA, FELICITY ([id number]) on 02/28/2016 1:16:14 PM Referred By: Overread By: FELICITY JEAN MD
--- NOTE | 2016-02-28 15:26 | PN ---
Progress Note (short form) - Note Progress Note: C/o bodyache Nausea and vomiting last night BGM improving No hypos Vital Signs Period Temp Pulse Resp BP Sys/[place] Pulse Ox Last 24 Hr 98.2 F-99.2 F 61-111 11-19 126-167/84-96 100-100 PE: AOx3 Neck: Supple, No JVD HEENT: PERRL, EOMI Lungs: CTA CVS: S1S2 Abd: Benign EXT: No edema Neuro: No focal deficit CMP Sodium 137 mmol/L (136-145) 02/28/16 10:07 Potassium 3.1 mmol/L (3.5-5.1) L 02/28/16 10:07 Chloride 101 mmol/L (98-107) 02/28/16 10:07 Carbon Dioxide 25 mmol/L (21-32) 02/28/16 10:07 Anion Gap 11 (8-16) 02/28/16 10:07 BUN 4 mg/dL (7-18) L D 02/28/16 10:07 Creatinine 0.4 mg/dL (0.7-1.3) L 02/28/16 10:07 Creat Clearance w eGFR > 60 (>60) 02/27/16 15:35 POC Glucometer 163.96124 UNITS (()) 02/28/16 10:06 Random Glucose 148 mg/dL (74-106) H 02/28/16 10:07 Hemoglobin A1c % 13.2 % (4.8-6.0) H 02/26/16 07:45 Lactic Acid 1.387 mmol/L (0.4-2.0) 02/25/16 22:22 Calcium 8.0 mg/dL (8.5-10.1) L 02/28/16 10:07 Phosphorus 1.9 mg/dL (2.5-4.9) L 02/27/16 15:35 Magnesium 1.9 mg/dL (1.8-2.4) 02/27/16 15:35 Total Bilirubin 0.4 mg/dL (0.2-1.0) D 02/27/16 15:35 AST 6 U/L (15-37) L D 02/27/16 15:35 ALT 17 U/L (12-78) D 02/27/16 15:35 Alkaline Phosphatase 80 U/L (45-117) D 02/27/16 15:35 Creatine Kinase 46 IU/L (39-308) 02/27/16 21:00 Troponin I < 0.02 ng/ml (0.00-0.05) 02/27/16 21:00 Total Protein 6.1 g/dl (6.4-8.2) L 02/27/16 15:35 Albumin 3.1 g/dl (3.4-5.0) L 02/27/16 15:35 Total Amylase 42 U/L (25-115) 02/27/16 15:35 Lipase 59 U/L (73-393) L 02/27/16 15:35 Current Medications Generic Name Dose Route Start Last Admin Trade Name Freq PRN Reason Stop Dose Admin Acetaminophen 650 mg 02/27/16 22:08 Tylenol - PO Q4H PRN FEVER OR PAIN Hydromorphone HCl 0.5 mg 02/27/16 15:38 02/27/16 19:40 Dilaudid Injection - IVPB 0.5 mg Q2H PRN Administration PAIN LEVEL 6-10 Famotidine/Sodium Chloride 50 mls @ 100 mls/hr 02/26/16 22:00 02/28/16 09:56 Pepcid 20 Mg Premixed Ivpb - IVPB 100 mls/hr BID [facility] Administration Ceftriaxone Sodium 100 mls @ 200 mls/hr 02/27/16 10:00 02/28/16 09:57 Rocephin 2gm Ivpb (Pre-Docked) IVPB 200 mls/hr DAILY [facility] Administration Insulin Aspart 1 vial 02/27/16 16:30 02/28/16 10:07 Novolog Vial Sliding Scale - SQ 2 units TIDAC [facility] Administration Protocol Insulin Aspart 1 vial 02/27/16 22:00 02/27/16 21:32 Novolog Vial Sliding Scale - SQ Not Given HS [facility] Protocol Insulin Detemir 10 units 02/27/16 22:00 02/27/16 21:31 Levemir Vial SQ 10 units HS [facility] Administration Nicotine 21 mg 02/27/16 10:00 02/28/16 09:56 Nicoderm Patch - TD 21 mg DAILY [facility] Administration Ondansetron HCl 4 mg 02/26/16 16:09 02/28/16 05:59 Zofran Injection IVPUSH 4 mg Q6H PRN Administration NAUSEA AND/OR VOMITING Assessment/Plan DKA: Resolved DM: A1C 13.2 Pyelonephritis BGM Q ACHS Levemir 10 daily Novolog SS coverage Will need to be on Insulin for now. Check C peptide, NING antibody IV Abx Advance diet as tolerated Teach pt to self inject insulin
[2016-02-28] MEDS: HYDROmorphone HCL CARPU-JECT 1 MG/1 ML DISP.SYRIN IVPB PRN ×2 (16:02→23:00)
[2016-02-28] MEDS: INSULIN DETEMIR 100 UNITS/ML MDV SQ SCH (21:34)
[2016-02-28] MEDS ORDERED: METOCLOPRAMIDE HCL 10 MG TABLET (FP) PO SCH (22:00)
[2016-02-28] MEDS: METOCLOPRAMIDE HCL INJECTION 10 MG/2 ML VIAL IVPB SCH (22:24)
[2016-02-29] MEDS: HYDROmorphone HCL CARPU-JECT 1 MG/1 ML DISP.SYRIN IVPB PRN ×2 (04:22→09:30)
[2016-02-29] MEDS: INSULIN SLIDING SCALE (NOVOLOG) 1 VIAL SQ SCH ×4 (06:03→21:43)
[2016-02-29] MEDS: METOCLOPRAMIDE HCL INJECTION 10 MG/2 ML VIAL IVPB SCH ×4 (06:19→21:36)
[2016-02-29] MEDS ORDERED: ONDANSETRON 4 MG/2 ML VIAL IVPB ONE (09:45)
[2016-02-29] MEDS: NICOTINE 21 MG/24 HOURS TOPICAL PATCH TD SCH (10:35)
[2016-02-29 10:55] LABS: CALCIUM 8.1 mg/dL (8.5-10.1); CREATININE 0.5 mg/dL (0.7-1.3); MAGNESIUM 2.1 mg/dL (1.8-2.4)
[2016-02-29] MEDS: SODIUM CHLORIDE 1,000 ML IV SCH (11:42)
[2016-02-29] MEDS: CEFTRIAXONE 100 ML IVPB SCH (11:43)
--- NOTE | 2016-02-29 12:13 | PN ---
Progress Note (short form) - Note Progress Note: Denies any complaints BGM improving No hypos Vital Signs Period Temp Pulse Resp BP Sys/[place] Pulse Ox Last 24 Hr 98.1 F-99.4 F 67-89 18-24 128-149/82-92 100-100 PE: AOx3 Neck: Supple, No JVD HEENT: PERRL, EOMI Lungs: CTA CVS: S1S2 Abd: Benign EXT: No edema Neuro: No focal deficit CMP Sodium 134 mmol/L (136-145) L 02/29/16 10:20 Potassium 3.1 mmol/L (3.5-5.1) L 02/29/16 10:20 Chloride 98 mmol/L (98-107) 02/29/16 10:20 Carbon Dioxide 27 mmol/L (21-32) 02/29/16 10:20 Anion Gap 9 (8-16) 02/29/16 10:20 BUN 8 mg/dL (7-18) D 02/29/16 10:20 Creatinine 0.5 mg/dL (0.7-1.3) L D 02/29/16 10:20 Creat Clearance w eGFR > 60 (>60) 02/27/16 15:35 POC Glucometer 127 UNITS (()) 02/29/16 04:59 Random Glucose 207 mg/dL (74-106) H D 02/29/16 10:20 Hemoglobin A1c % 13.2 % (4.8-6.0) H 02/26/16 07:45 Lactic Acid 1.387 mmol/L (0.4-2.0) 02/25/16 22:22 Calcium 8.1 mg/dL (8.5-10.1) L 02/29/16 10:20 Phosphorus 1.9 mg/dL (2.5-4.9) L 02/27/16 15:35 Magnesium 2.1 mg/dL (1.8-2.4) 02/29/16 10:20 Total Bilirubin 0.4 mg/dL (0.2-1.0) D 02/27/16 15:35 AST 6 U/L (15-37) L D 02/27/16 15:35 ALT 17 U/L (12-78) D 02/27/16 15:35 Alkaline Phosphatase 80 U/L (45-117) D 02/27/16 15:35 Creatine Kinase 46 IU/L (39-308) 02/27/16 21:00 Troponin I < 0.02 ng/ml (0.00-0.05) 02/27/16 21:00 Total Protein 6.1 g/dl (6.4-8.2) L 02/27/16 15:35 Albumin 3.1 g/dl (3.4-5.0) L 02/27/16 15:35 Total Amylase 42 U/L (25-115) 02/27/16 15:35 Lipase 59 U/L (73-393) L 02/27/16 15:35 Current Medications Generic Name Dose Route Start Last Admin Trade Name Freq PRN Reason Stop Dose Admin Acetaminophen 650 mg 02/27/16 22:08 Tylenol - PO Q4H PRN FEVER OR PAIN Al Hydroxide/Mg Hydroxide 30 ml 02/29/16 14:00 Mylanta Oral Suspension - PO TID [facility] Erythromycin 250 mg 03/01/16 10:00 Turner-Tab - PO DAILY [facility] Ceftriaxone Sodium 100 mls @ 200 mls/hr 02/27/16 10:00 02/29/16 11:43 Rocephin 2gm Ivpb (Pre-Docked) IVPB 200 mls/hr DAILY [facility] Administration Sodium Chloride 1,000 mls @ 75 mls/hr 02/29/16 11:00 02/29/16 11:42 Normal Saline - IV 75 mls/hr ASDIR [facility] Administration Pantoprazole Sodium 100 mls @ 200 mls/hr 03/01/16 10:00 Protonix 40mg Ivpb (Pre-Docked) IVPB DAILY [facility] Insulin Aspart 1 vial 02/27/16 16:30 02/29/16 06:03 Novolog Vial Sliding Scale - SQ Not Given TIDAC [facility] Protocol Insulin Aspart 1 vial 02/27/16 22:00 02/28/16 21:34 Novolog Vial Sliding Scale - SQ Not Given HS [facility] Protocol Insulin Detemir 10 units 02/27/16 22:00 02/28/16 21:34 Levemir Vial SQ 10 units HS [facility] Administration Metoclopramide HCl 5 mg 02/28/16 22:30 02/29/16 06:19 Reglan Injection - IVPB 5 mg ACHS [facility] Administration Nicotine 21 mg 02/27/16 10:00 02/29/16 10:35 Nicoderm Patch - TD 21 mg DAILY [facility] Administration Assessment/Plan DKA: Resolved DM: A1C 13.2 Pyelonephritis BGM Q ACHS Levemir 10 daily Novolog SS coverage Will need to be on Insulin for now. Check C peptide, NING antibody IV Abx Advance diet as tolerated Teach pt to self inject insulin
[2016-02-29] MEDS ORDERED: INSULIN (NOVOLOG) ASPART 100 UNITS/ML 10ML VIAL ONE ×2 (12:27→13:03)
[2016-02-29] MEDS: KCL 10 MEQ IVPB 100 ML IVPB SCH ×3 (13:27→18:48)
[2016-02-29] MEDS: MAG HYDROX/AL HYDROX/SIMETH 30 ML UNIT-DOSE CUP PO SCH ×3 (13:44→21:36)
--- NOTE | 2016-02-29 13:47 | PN ---
Physical Exam: SUBJECTIVE: Patient seen and examined. Patient states that he is still vomiting and feels nauseated. States that he has liquids in morning and than vomited after that. He also states that he is still having a heart burn. OBJECTIVE: Vital Signs Period Temp Pulse Resp BP Sys/[place] Torre Pulse Ox Last 24 Hr 98.1 F-99.4 F 67-89 18-24 128-149/82-92 100-100 GENERAL: The patient is awake, alert, and fully oriented, complaining of nausea HEAD: Normal with no signs of trauma. EYES: PERRL, extraocular movements intact, sclera anicteric, conjunctiva clear. No ptosis. ENT: Ears normal, nares patent, oropharynx clear without exudates, dry mucus membrane NECK: Trachea midline, full range of motion, supple. LUNGS: Breath sounds equal, clear to auscultation bilaterally, no wheezes, no crackles, HEART: tachcardia, S1, S2 normal without murmur, rub or gallop. ABDOMEN: Soft, nontender, nondistended, normoactive bowel sounds, no guarding, midline scar present from previous surgery. no renal geoff tenderness EXTREMITIES: 2+ pulses, warm, well-perfused, no edema. NEUROLOGICAL: Cranial nerves II through XII grossly intact., gait not observed. PSYCH: Normal mood, normal affect. SKIN: Warm, dry, normal turgor, no rashes or lesions noted Laboratory Results - last 24 hr 02/28/16 02/28/16 02/29/16 15:57 20:59 04:59 Sodium Potassium Chloride Carbon Dioxide Anion Gap BUN Creatinine POC Glucometer 176.48329 184.05791 127 Random Glucose Calcium Magnesium 02/29/16 02/29/16 10:20 12:25 Sodium 134 L Potassium 3.1 L Chloride 98 Carbon Dioxide 27 Anion Gap 9 BUN 8 D Creatinine 0.5 L D POC Glucometer 198 Random Glucose 207 H D Calcium 8.1 L Magnesium 2.1 Active Medications Generic Name Dose Route Start Last Admin Trade Name Freq PRN Reason Stop Dose Admin Acetaminophen 650 mg 02/27/16 22:08 Tylenol - PO Q4H PRN FEVER OR PAIN Al Hydroxide/Mg Hydroxide 30 ml 02/29/16 14:00 02/29/16 13:45 Mylanta Oral Suspension - PO 30 ml TID [facility] Administration Erythromycin 250 mg 02/29/16 14:00 Turner-Tab - PO TID [facility] Ceftriaxone Sodium 100 mls @ 200 mls/hr 02/27/16 10:00 02/29/16 11:43 Rocephin 2gm Ivpb (Pre-Docked) IVPB 200 mls/hr DAILY [facility] Administration Sodium Chloride 1,000 mls @ 75 mls/hr 02/29/16 11:00 02/29/16 11:42 Normal Saline - IV 75 mls/hr ASDIR [facility] Administration Potassium Chloride 100 mls @ 100 mls/hr 02/29/16 12:30 02/29/16 13:27 Potassium Chloride 10 Meq Premix Ivpb - IVPB 02/29/16 15:29 100 mls/hr Q60M [facility] Administration Pantoprazole Sodium 100 mls @ 200 mls/hr 02/29/16 16:00 Protonix 40mg Ivpb (Pre-Docked) IVPB DAILY [facility] Insulin Aspart 1 vial 02/27/16 16:30 02/29/16 12:28 Novolog Vial Sliding Scale - SQ 2 units TIDAC [facility] Administration Protocol Insulin Aspart 1 vial 02/27/16 22:00 02/28/16 21:34 Novolog Vial Sliding Scale - SQ Not Given HS [facility] Protocol Insulin Detemir 10 units 02/27/16 22:00 02/28/16 21:34 Levemir Vial SQ 10 units HS [facility] Administration Metoclopramide HCl 5 mg 02/28/16 22:30 02/29/16 12:45 Reglan Injection - IVPB 5 mg ACHS [facility] Administration Nicotine 21 mg 02/27/16 10:00 02/29/16 10:35 Nicoderm Patch - TD 21 mg DAILY [facility] Administration ASSESSMENT/PLAN: This is a 40 year old male with a PMHx of: Diabetes Mellitus ( untreated). Who presents to the ED with nausea, vomiting. Admitted for Pyelonephritis, Uncontrolled DM vomiting, nausea and heart burn: could be due to gastroperesis on metoclopramide started on erythromycin 250mg tid for gastroperesis control blood sugar on oral liquid started on PPI started on maalox started on UV fluid ns at 75ml/hr give zofran prn Pyelonephritis on ceftrixaone 2gm daily day 5 urine culture strep aglactaie, will complete a course for 14 days Hypokalemia. : k 3.1 will give him 30meq iv and than repeat sr k if still low will give more untreated DM with hyperglycemia on sliding scale on levemir 10 unit hs Pain abdomen; could be due to diabetic ketoacidosis resolved fluid: ns at 75 ml/hr electrolyte: hypokalemia nutrition; clear liquid diabetic pro dvt: ambilatory Gi on protonix on nicotine patch dispo: on med surg Visit type - Emergency Visit Emergency Visit: Yes ED Registration Date: 02/25/16 Care time: The patient presented to the Emergency Department on the above date and was hospitalized for further evaluation of their emergent condition. - New Patient This patient is new to me today: No - Critical Care Critical Care patient: No
[2016-02-29] MEDS ORDERED: ERYTHROMYCIN BASE 500 MG TABLET PO SCH (14:00)
--- NOTE | 2016-02-29 15:58 | PN ---
Teaching Attending Note Name of Resident: Lukas Mccarty ATTENDING PHYSICIAN STATEMENT I saw and evaluated the patient. I reviewed the resident's note and discussed the case with the resident. I agree with the resident's findings and plan as documented. SUBJECTIVE: had N/V this am . No abd pain , has burning type discomfort in epigastum and chest OBJECTIVE: NAD CV: RRR Lungs : CTAB ext : NO edema A?P 40 y/o man with h/o untreated DM , who presented to ER on 02/23, diagnosed with UTI, dc on bactrim , but came back with N/V . He was found to have signs of pyelonephritis of L kidney on CT scan , also DKA 1- DKA ; resolved . sugar is more controlled - cont levemir and SSI 2- N/V : likely due to gastroparesis . - add IVF - treat with reglan and zofran if needed - start erythromycin - add maalox and chane H2 praveen to PPI 3- Pyelonephritis : U cx with group B strep sensitive to PCN - cont CTX ( day 07/10 ) 5- Electrolytes abn : replete 6- DVT px
[2016-02-29] MEDS: PANTOPRAZOLE SODIUM 100 ML IVPB SCH (17:10)
[2016-02-29] MEDS: INSULIN DETEMIR 100 UNITS/ML MDV SQ SCH (21:37)
[2016-03-01] MEDS: MAG HYDROX/AL HYDROX/SIMETH 30 ML UNIT-DOSE CUP PO SCH ×2 (06:01→16:52)
[2016-03-01] MEDS: INSULIN SLIDING SCALE (NOVOLOG) 1 VIAL SQ SCH ×3 (06:04→17:05)
[2016-03-01] MEDS: METOCLOPRAMIDE HCL INJECTION 10 MG/2 ML VIAL IVPB SCH ×2 (06:04→12:18)
[2016-03-01 06:33] LABS: MCH 27.9 pg (25.7-33.7); MCHC 33.5 g/dl (32.0-35.9); MEAN CELL VOLUME 83.1 fl (80-96); MEAN PLT VOLUME 8.1 fl (7.5-11.1); PLATELET COUNT 363 K/MM3 (134-434); RDW 12.6 % (11.9-15.9); WHITE BLOOD COUNT 10.9 K/mm3 (4.0-10.0)
[2016-03-01] MEDS ORDERED: ACETAMINOPHEN 325 MG TABLET (FP) PO PRN (07:24)
[2016-03-01 08:36] LABS: CREATININE 0.4 mg/dL (0.7-1.3)
[2016-03-01] MEDS ORDERED: CEFTRIAXONE 100 ML IVPB SCH (10:00)
[2016-03-01] MEDS ORDERED: ERYTHROMYCIN BASE 500 MG TABLET PO SCH (10:00)
[2016-03-01] MEDS ORDERED: NICOTINE 21 MG/24 HOURS TOPICAL PATCH TD SCH (10:00)
[2016-03-01] MEDS ORDERED: PANTOPRAZOLE SODIUM 100 ML IVPB SCH (10:00)
[2016-03-01] MEDS: PANTOPRAZOLE SODIUM 100 ML IVPB SCH (10:22)
[2016-03-01] MEDS: KCL 10 MEQ IVPB 100 ML IVPB SCH ×3 (10:22→13:43)
[2016-03-01] MEDS: SODIUM CHLORIDE 1,000 ML IV SCH (12:17)
[2016-03-01] MEDS ORDERED: PT OWN MED DRAWER 7, Y5N ONE (12:35)
[2016-03-01 13:33] VITALS: BP 108/73; PULSE 78; TEMP 98.3
--- NOTE | 2016-03-01 15:33 | PN ---
Teaching Attending Note Name of Resident: Lukas Mccarty ATTENDING PHYSICIAN STATEMENT I saw and evaluated the patient. I reviewed the resident's note and discussed the case with the resident. I agree with the resident's findings and plan as documented. SUBJECTIVE: much better today . no fever or chills , tolerated liquids OBJECTIVE: NAD CV: RRR Lungs : CTAB ext : NO edema A/P 40 y/o man with h/o untreated DM , who presented to ER on 02/23, diagnosed with UTI, dc on bactrim , but came back with N/V . He was found to have signs of pyelonephritis of L kidney on CT scan , also DKA 1- DKA ; resolved . levemir at dc 2- N/V : likely due to gastroparesis . - cont erythromycin x 3 -4 days try soft diet 3- Pyelonephritis : U cx with group B strep sensitive to PCN - CTX day 6. will cont with levaquin for total of 14 days 5- Electrolytes abn : replete dc home today if he tolerates diet
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
[2016-03-01] MEDS ORDERED: INSULIN DETEMIR 100 UNITS/ML MDV SQ SCH (22:00)
[2016-03-01] MEDS ORDERED: INSULIN SLIDING SCALE (NOVOLOG) 1 VIAL SQ SCH (22:00)
== END 2016-03-01 17:51 | disposition home or self-care (01) | DRG 463 ==
LOC: JER 16:08 → JERBED 21:54 → J7W 23:43 → JICU 02-26 16:17 → J5S 02-28 21:22
PROVIDERS: ADMIT Internal Medicine; ATTEND Internal Medicine
DX: N10 Acute pyelonephritis (principal); E10.10 Type 1 diabetes mellitus with ketoacidosis without coma; Z79.4 Long term (current) use of insulin; E87.6 Hypokalemia; E10.43 Type 1 diabetes mellitus with diabetic autonomic (poly)neuropathy; E10.65 Type 1 diabetes mellitus with hyperglycemia; K31.84 Gastroparesis
CPT/HCPCS: 36415; 36600; 71010-TC; 74177-TC; 80048; 80053; 81003; 81015; 82009; 82150; 82550; 82803; 83036; 83605; 83690; 83735; 84100; 84132; 84484; 85025; 85027; 87040; 87086; 93005; 93010; 99285-25

== ENCOUNTER 2017-10-03 16:29 | Emergency (ER) | payer SELFPAY ==
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
[2017-10-03 16:38] VITALS: BP 117/61; PULSE 85; TEMP 97.8; BMI 23.1
[2017-10-03] MEDS ORDERED: KETOROLAC TROMETHAMINE 60 MG/2 ML VIAL IM ONE (21:04)
[2017-10-03] MEDS ORDERED: CYCLOBENZAPRINE HCL 5 MG TABLET PO SCH (21:15)
[2017-10-03] MEDS ORDERED: CYCLOBENZAPRINE HCL 10 MG TABLET (FP) ONE (21:30)
[2017-10-03] MEDS ORDERED: KETOROLAC TROMETHAMINE 60 MG/2 ML VIAL ONE (21:30)
[2017-10-03 22:11] LABS: BASO % 0.5 % (0-2.0); EOS % 1.6 % (0-4.5); HEMATOCRIT 39.1 % (35.4-49); HEMOGLOBIN 13.5 GM/dL (11.7-16.9); LYMPH % 28.1 % (8-40); MCH 29.7 pg (25.7-33.7); MCHC 34.4 g/dl (32.0-35.9); MEAN CELL VOLUME 86.3 fl (80-96); MEAN PLT VOLUME 8.4 fl (7.5-11.1); MONO % 8.3 % (3.8-10.2); NEUT % 61.5 % (42.8-82.8); PLATELET COUNT 245 K/MM3 (134-434); RBC 4.53 M/mm3 (4.00-5.60); RDW 12.8 % (11.9-15.9); WHITE BLOOD COUNT 5.9 K/mm3 (4.0-10.0)
[2017-10-03 22:31] LABS: URINE APPEARANCE CLEAR; URINE BILIRUBIN NEGATIVE (<2.0 mg/dL); URINE COLOR YELLOW; URINE GLUCOSE (UA) 3+ (NEGATIVE); URINE KETONE TRACE (NEGATIVE); URINE LEUK ESTERASE NEGATIVE (NEGATIVE); URINE NITRITE NEGATIVE (NEGATIVE); URINE UROBILINOGEN 4.0 E.U/dl mg/dL (0.2-1.0)
[2017-10-03 22:32] LABS: URINE PROTEIN 1+ (NEGATIVE)
[2017-10-03 22:36] LABS: URINE MUCUS FEW
[2017-10-03 22:43] LABS: ALBUMIN 3.5 g/dl (3.4-5.0); ALK PHOS 98 U/L (45-117); ANION GAP 8 (8-16); BILIRUBIN,TOTAL 0.4 mg/dL (0.2-1.0); BLOOD UREA NITROGEN 16 mg/dL (7-18); CALCIUM 8.7 mg/dL (8.5-10.1); CHLORIDE 109 mmol/L (98-107); CO2 25 mmol/L (21-32); CREATININE 0.7 mg/dL (0.7-1.3); GLUCOSE,RANDOM 238 mg/dL (74-106); LIPASE 93 U/L (73-393); SGOT/AST 18 U/L (15-37); SGPT/ALT 49 U/L (12-78); SODIUM 142 mmol/L (136-145); TOT PROT 6.5 g/dl (6.4-8.2)
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
--- NOTE | 2017-10-03 23:55 | PDOC ---
*Physical Exam - Vital Signs Last Vital Signs Temp Pulse Resp BP Pulse Ox 97.8 F 85 19 117/61 98 10/03/17 16:31 10/03/17 16:31 10/03/17 16:31 10/03/17 16:31 10/03/17 16:31 ED Treatment Course - LABORATORY CBC & Chemistry Diagram: 10/03/17 21:49 10/03/17 21:49 - ADDITIONAL ORDERS Additional order review: Laboratory Results 10/03/17 10/03/17 10/03/17 22:00 21:49 21:49 Sodium 142 Potassium 4.0 Chloride 109 H D Carbon Dioxide 25 Anion Gap 8 BUN 16 Creatinine 0.7 Creat Clearance w eGFR > 60 Random Glucose 238 H D Calcium 8.7 Total Bilirubin 0.4 AST 18 D ALT 49 D Alkaline Phosphatase 98 Total Protein 6.5 Albumin 3.5 Lipase 93 Urine Color Yellow Urine Appearance Clear Urine pH 5.0 Ur Specific [place] 1.028 Urine Protein 1+ H Urine Glucose (UA) 3+ H Urine Ketones Trace H Urine Blood Negative Urine Nitrite Negative Urine Bilirubin Negative Urine Urobilinogen 4.0 e.u/dl Ur Leukocyte Esterase Negative Urine WBC (Auto) 1 Urine RBC (Auto) <1 Urine Mucus Few Acetone, Qual Negative 10/03/17 21:49 RBC 4.53 MCV 86.3 MCHC 34.4 RDW 12.8 MPV 8.4 Neutrophils % 61.5 D Lymphocytes % 28.1 D Monocytes % 8.3 D Eosinophils % 1.6 D Basophils % 0.5 - Medications Given in the ED: ED Medications Discontinued Medications Generic Name Dose Route Start Last Admin Trade Name Lakia PRN Reason Stop Dose Admin Ketorolac Tromethamine 60 mg 10/03/17 21:04 10/03/17 21:40 Toradol Injection - IM 10/03/17 21:05 60 mg ONCE ONE Administration Medical Decision Making - Medical Decision Making 10/03/17 23:55 agree with care from CALI Jaramillo *DC/Admit/Observation/Transfer Diagnosis at time of Disposition: Back pain Qualifiers: Back pain location: low back pain Chronicity: acute Back pain laterality: unspecified Sciatica presence: without sciatica Qualified Code(s): M54.5 - Low back pain - Discharge Dispostion Condition at time of disposition: Stable - Referrals Referrals: Bandar Rice MD [Staff Physician] - - Patient Instructions Printed Discharge Instructions: DI for Low Back Pain Additional Instructions: Avoid lifting heavy objects Tylenol alternating with Motrin as needed for pain Follow-up with the orthopedic surgeon listed on your discharge Return back to the ER for severe/persistent or worsening symptoms Print Language: YORUBA - Post Discharge Activity Forms/Work/School Notes: Back to Work
== END 2017-10-04 00:04 | disposition home or self-care (01) ==
LOC: JER 16:29
PROC: 3E0233Z Introduction of Anti-inflammatory into Muscle, Percutaneous Approach (ICD-10-PCS; principal; 2017-10-03)
DX: M54.5 Low back pain (principal); Z11.9 Encounter for screening for infectious and parasitic diseases, unspecified; F17.210 Nicotine dependence, cigarettes, uncomplicated; Z79.4 Long term (current) use of insulin
CPT/HCPCS: 36415; 72100-TC-FY; 80053; 81003; 81015; 82009; 83690; 85025; 99281-25

== ENCOUNTER 2020-08-06 16:33 | Emergency (ER) | payer OTHER ==
[2020-08-06 16:42] VITALS: TEMP 98.1; BMI 25.9
[2020-08-06] MEDS ORDERED: SODIUM CHLORIDE 1,000 ML IV STA (17:23)
[2020-08-06] MEDS ORDERED: MAG HYDROX/AL HYDROX/SIMETH -MYLANTA- ORAL SUSPENSION PO ONE (17:23)
[2020-08-06] MEDS ORDERED: FAMOTIDINE 20 MG/50 ML IVPB 20 MG/50 ML MG IVPB ONE ×2 (17:23→17:43)
[2020-08-06] MEDS ORDERED: ONDANSETRON 4 MG/2 ML VIAL IVPUSH ONE (17:23)
[2020-08-06] MEDS ORDERED: ONDANSETRON 4 MG/2 ML VIAL ONE (17:43)
[2020-08-06] MEDS ORDERED: MAG HYDROX/AL HYDROX/SIMETH 30 ML UNIT-DOSE CUP ONE (17:43)
[2020-08-06 18:27] LABS: BASO % 0.7 % (0-2.0); EOS % 1.4 % (0-4.5); HEMOGLOBIN 13.8 GM/dL (11.7-16.9); LYMPH % 15.7 % (8-40); MCH 29.7 pg (25.7-33.7); MCHC 34.5 g/dl (32.0-35.9); MEAN CELL VOLUME 86.1 fl (80-96); MEAN PLT VOLUME 8.4 fl (7.5-11.1); MONO % 5.9 % (3.8-10.2); NEUT % 76.3 % (42.8-82.8); PLATELET COUNT 264 K/MM3 (134-434); RBC 4.65 M/mm3 (4.00-5.60); RDW 13.4 % (11.9-15.9); WHITE BLOOD COUNT 7.2 K/mm3 (4.0-10.0)
[2020-08-06 18:45] LABS: CHLORIDE 105 mmol/L (98-107); SODIUM 139 mmol/L (136-145)
[2020-08-06 18:49] LABS: CALCIUM 8.4 mg/dL (8.5-10.1)
[2020-08-06 18:50] LABS: ALBUMIN 2.4 g/dl (3.4-5.0); ANION GAP 8 MMOL/L (8-16); BLOOD UREA NITROGEN 14.8 mg/dL (7-18); CO2 26 mmol/L (21-32); GLUCOSE,RANDOM 207 mg/dL (74-106); LIPASE 49 U/L (73-393)
[2020-08-06 18:53] LABS: CREATININE 0.6 mg/dL (0.55-1.3); SGOT/AST 13 U/L (15-37); SGPT/ALT 30 U/L (13-61)
[2020-08-06 18:54] LABS: BILIRUBIN,TOTAL 0.4 mg/dL (0.2-1); TOT PROT 5.2 g/dl (6.4-8.2)
[2020-08-06 18:55] LABS: ALK PHOS 85 U/L (45-117)
[2020-08-06 20:18] VITALS: BP 118/71; PULSE 70
== END 2020-08-06 20:18 | disposition home or self-care (01) ==
LOC: JER 16:33
PROC: 3E033GC Introduction of Other Therapeutic Substance into Peripheral Vein, Percutaneous Approach (ICD-10-PCS; principal; 2020-08-06)
PROC: 3E033GC Introduction of Other Therapeutic Substance into Peripheral Vein, Percutaneous Approach (ICD-10-PCS; 2020-08-06)
PROC: 3E0337Z Introduction of Electrolytic and Water Balance Substance into Peripheral Vein, Percutaneous Approach (ICD-10-PCS; 2020-08-06)
DX: R07.9 Chest pain, unspecified (principal)
CPT/HCPCS: 36415; 71046-TC-FY; 80053; 82550; 82553; 83690; 84484; 85025; 93005; 93010; 99285-25

== ENCOUNTER 2020-08-09 18:14 | Inpatient (IN) | payer OTHER ==
[2020-08-09 19:14] LABS: BASO % 0.6 % (0-2.0); EOS % 0.8 % (0-4.5); HEMATOCRIT 42.3 % (35.4-49); HEMOGLOBIN 14.6 GM/dL (11.7-16.9); LYMPH % 11.3 % (8-40); MCH 29.6 pg (25.7-33.7); MCHC 34.6 g/dl (32.0-35.9); MEAN CELL VOLUME 85.6 fl (80-96); MEAN PLT VOLUME 7.7 fl (7.5-11.1); NEUT % 83.3 % (42.8-82.8); PLATELET COUNT 279 K/MM3 (134-434); RBC 4.95 M/mm3 (4.00-5.60); RDW 12.8 % (11.9-15.9); WHITE BLOOD COUNT 9.5 K/mm3 (4.0-10.0)
[2020-08-09 19:21] LABS: INR 0.9 (0.83-1.09); PROTHROMBIN TIME (PATIENT) 11.1 SEC (9.7-13.0)
[2020-08-09 19:39] LABS: CHLORIDE 102 mmol/L (98-107); SODIUM 137 mmol/L (136-145)
[2020-08-09 19:41] LABS: ALBUMIN 2.6 g/dl (3.4-5.0); BLOOD UREA NITROGEN 11.4 mg/dL (7-18); CALCIUM 8.6 mg/dL (8.5-10.1)
[2020-08-09 19:42] LABS: ANION GAP 4 MMOL/L (8-16); CO2 30 mmol/L (21-32); GLUCOSE,RANDOM 157 mg/dL (74-106); LIPASE 50 U/L (73-393)
[2020-08-09 19:45] LABS: CREATININE 0.6 mg/dL (0.55-1.3); SGOT/AST 18 U/L (15-37); SGPT/ALT 29 U/L (13-61)
[2020-08-09 19:46] LABS: BILIRUBIN,TOTAL 0.4 mg/dL (0.2-1); TOT PROT 5.6 g/dl (6.4-8.2)
[2020-08-09 19:47] LABS: ALK PHOS 105 U/L (45-117)
[2020-08-09] MEDS ORDERED: ACETAMINOPHEN 1000 MG/100 ML VIAL (NON FORMULARY) IVPB ONE (20:06)
[2020-08-09] MEDS ORDERED: LACTATED RINGERS SOLUTION 1000 ML INFUS.BAG IV ONE (20:06)
[2020-08-09] MEDS ORDERED: ONDANSETRON 4 MG/2 ML VIAL IVPUSH ONE ×2 (20:06→22:47)
[2020-08-09 20:13] LABS: EPI CELLS 4 /uL (0-25.1); HYALINE CASTS 0 /uL (0-3.1); PH,URINE >= 9.0 (5.0-8.0); URINE APPEARANCE CLEAR; URINE BACTERIA 6 /uL (0-1359); URINE BILIRUBIN NEGATIVE (NEGATIVE); URINE COLOR YELLOW; URINE GLUCOSE (UA) TRACE (NEGATIVE); URINE KETONE NEGATIVE (NEGATIVE); URINE LEUK ESTERASE NEGATIVE (NEGATIVE); URINE NITRITE NEGATIVE (NEGATIVE); URINE PROTEIN 3+ (NEGATIVE); URINE RBC 42 /uL (0-23.9); URINE UROBILINOGEN 0.2 mg/dL (0.2-1.0); URINE WBC 2 /uL (0-25.8)
[2020-08-09] MEDS ORDERED: ACETAMINOPHEN INJECTION 100 ML IVPB ONE (20:17)
[2020-08-09] MEDS ORDERED: ONDANSETRON 4 MG/2 ML VIAL ONE ×2 (20:17→22:55)
[2020-08-09] MEDS ORDERED: METOCLOPRAMIDE HCL INJECTION 10 MG/2 ML VIAL IVPUSH ONE (20:53)
[2020-08-09] MEDS ORDERED: METOCLOPRAMIDE HCL INJECTION 10 MG/2 ML VIAL ONE (21:02)
[2020-08-09 23:21] LABS: METHADONE, UR NEGATIVE ng/ml (CUTOFF=300); OPIATES, URI NEGATIVE ng/ml (CUTOFF=300); PHENCYCLIDINE,URINE NEGATIVE ng/ml (CUTOFF=25); URINE BARBITURATES NEGATIVE ng/ml (CUTOFF=200); URINE BENZODIAZEPINES NEGATIVE ng/ml (CUTOFF=200)
[2020-08-09 23:22] LABS: COCAINE, UR NEGATIVE ng/ml (CUTOFF=300); URINE AMPHETAMINES NEGATIVE ng/ml (CUTOFF=500)
[2020-08-10] MEDS: METOCLOPRAMIDE HCL INJECTION 10 MG/2 ML VIAL IVPUSH SCH ×5 (02:38→21:22)
[2020-08-10] MEDS: INSULIN SLIDING SCALE (NOVOLOG) 1 VIAL SQ SCH ×4 (06:27→21:35)
[2020-08-10] MEDS: SUCRALFATE 1 GM TABLET (FP) PO SCH ×2 (06:41→16:47)
[2020-08-10 08:51] LABS: HEMATOCRIT 41.7 % (35.4-49); HEMOGLOBIN 14.2 GM/dL (11.7-16.9); MCH 29.5 pg (25.7-33.7); MCHC 33.9 g/dl (32.0-35.9); MEAN PLT VOLUME 8.3 fl (7.5-11.1); PLATELET COUNT 283 K/MM3 (134-434); RDW 12.9 % (11.9-15.9); WHITE BLOOD COUNT 8.7 K/mm3 (4.0-10.0)
[2020-08-10 09:06] LABS: CHLORIDE 105 mmol/L (98-107); SODIUM 138 mmol/L (136-145)
[2020-08-10 09:10] LABS: CALCIUM 8.8 mg/dL (8.5-10.1)
[2020-08-10 09:11] LABS: ALBUMIN 2.5 g/dl (3.4-5.0); ANION GAP 6 MMOL/L (8-16); BLOOD UREA NITROGEN 11.8 mg/dL (7-18); CO2 27 mmol/L (21-32); GLUCOSE,RANDOM 149 mg/dL (74-106); MAGNESIUM 2.4 mg/dL (1.8-2.4)
[2020-08-10 09:14] LABS: CREATININE 0.8 mg/dL (0.55-1.3); PHOSPHOROUS 3.7 mg/dL (2.5-4.9); SGOT/AST 17 U/L (15-37); SGPT/ALT 26 U/L (13-61)
[2020-08-10 09:15] LABS: BILIRUBIN,TOTAL 0.5 mg/dL (0.2-1)
[2020-08-10 09:19] LABS: TOT PROT 5.3 g/dl (6.4-8.2)
[2020-08-10 09:20] LABS: ALK PHOS 83 U/L (45-117)
[2020-08-10] MEDS: FAMOTIDINE 20 MG/50 ML IVPB 20 MG/50 ML MG IVPB SCH ×2 (10:00→21:22)
[2020-08-10] MEDS ORDERED: SODIUM CHLORIDE 1,000 ML IV SCH ×2 (12:30→18:50)
[2020-08-10] MEDS: HEPARIN NA (PORCINE) 5,000 UNITS/ML 1ML VIAL SQ SCH (21:22)
[2020-08-11] MEDS ORDERED: PT OWN MED DRAWER 7, Y5N ONE (05:58)
[2020-08-11] MEDS: SUCRALFATE 1 GM TABLET (FP) PO SCH (06:17)
[2020-08-11] MEDS: INSULIN SLIDING SCALE (NOVOLOG) 1 VIAL SQ SCH ×4 (06:18→21:26)
[2020-08-11] MEDS: METOCLOPRAMIDE HCL INJECTION 10 MG/2 ML VIAL IVPUSH SCH ×4 (09:05→21:22)
[2020-08-11] MEDS: HEPARIN NA (PORCINE) 5,000 UNITS/ML 1ML VIAL SQ SCH ×2 (09:05→21:22)
[2020-08-11] MEDS: FAMOTIDINE 20 MG/50 ML IVPB 20 MG/50 ML MG IVPB SCH (09:43)
[2020-08-11] MEDS ORDERED: LISINOPRIL 5 MG TABLET PO ONE (10:00)
[2020-08-11 10:47] LABS: BASO % 0.2 % (0-2.0); HEMATOCRIT 40.5 % (35.4-49); HEMOGLOBIN 13.5 GM/dL (11.7-16.9); LYMPH % 6.9 % (8-40); MCH 28.5 pg (25.7-33.7); MCHC 33.2 g/dl (32.0-35.9); MEAN CELL VOLUME 85.8 fl (80-96); MEAN PLT VOLUME 8.4 fl (7.5-11.1); MONO % 1.6 % (3.8-10.2); NEUT % 91.3 % (42.8-82.8); PLATELET COUNT 282 10^3/uL (134-434); RBC 4.72 M/mm3 (4.00-5.60); RDW 12.7 % (11.9-15.9); WHITE BLOOD COUNT 11.5 K/mm3 (4.0-10.0)
[2020-08-11] MEDS ORDERED: PANTOPRAZOLE SODIUM 40 MG VIAL IVPUSH SCH (11:00)
[2020-08-11 11:10] LABS: ALBUMIN 2.4 g/dl (3.4-5.0); BLOOD UREA NITROGEN 18.6 mg/dL (7-18); CALCIUM 8.4 mg/dL (8.5-10.1); MAGNESIUM 2.1 mg/dL (1.8-2.4)
[2020-08-11 11:13] LABS: CREATININE 0.6 mg/dL (0.55-1.3)
[2020-08-11 11:15] LABS: BILIRUBIN,TOTAL 0.6 mg/dL (0.2-1); TOT PROT 5.1 g/dl (6.4-8.2)
[2020-08-11 11:28] LABS: ANISOCYTOSIS 0; HELMET CELLS 0; HOWELL-JOLLY BODIES 0; MACROCYTOSIS 0; OVALOCYTE 0; PLATELET ESTIMATE NORMAL; ROULEAU 0; SICKELED CELLS 0; TARGET CELLS 0; TEAR DROP CELLS 0; TOXIC GRANULATION 0
[2020-08-11] MEDS: SODIUM CHLORIDE 0.45% 1,000 ML IV SCH (12:19)
[2020-08-11] MEDS: PANTOPRAZOLE SODIUM 40 MG VIAL IVPUSH SCH ×2 (12:22→21:22)
[2020-08-12] MEDS: INSULIN SLIDING SCALE (NOVOLOG) 1 VIAL SQ SCH ×4 (06:14→21:31)
[2020-08-12 08:41] LABS: BASO % 0.8 % (0-2.0); EOS % 0.7 % (0-4.5); HEMATOCRIT 36.4 % (35.4-49); HEMOGLOBIN 12.6 GM/dL (11.7-16.9); MCH 29.6 pg (25.7-33.7); MCHC 34.7 g/dl (32.0-35.9); MEAN CELL VOLUME 85.4 fl (80-96); MEAN PLT VOLUME 8.1 fl (7.5-11.1); MONO % 6.9 % (3.8-10.2); NEUT % 68.6 % (42.8-82.8); PLATELET COUNT 253 10^3/uL (134-434); RBC 4.26 M/mm3 (4.00-5.60); RDW 12.9 % (11.9-15.9)
[2020-08-12 09:05] LABS: CHLORIDE 105 mmol/L (98-107); SODIUM 137 mmol/L (136-145)
[2020-08-12 09:09] LABS: CALCIUM 8.1 mg/dL (8.5-10.1); MAGNESIUM 2.1 mg/dL (1.8-2.4)
[2020-08-12 09:10] LABS: ALBUMIN 2.2 g/dl (3.4-5.0); ANION GAP 7 MMOL/L (8-16); BLOOD UREA NITROGEN 18.6 mg/dL (7-18); CO2 25 mmol/L (21-32); GLUCOSE,RANDOM 158 mg/dL (74-106); LIPASE 61 U/L (73-393)
[2020-08-12 09:11] LABS: AMYLASE 52 U/L (25-115)
[2020-08-12 09:12] LABS: CREATININE 0.6 mg/dL (0.55-1.3); SGOT/AST 13 U/L (15-37); SGPT/ALT 20 U/L (13-61)
[2020-08-12 09:14] LABS: TOT PROT 4.6 g/dl (6.4-8.2)
[2020-08-12 09:15] LABS: BILIRUBIN,TOTAL 0.6 mg/dL (0.2-1)
[2020-08-12 09:16] LABS: ALK PHOS 63 U/L (45-117)
[2020-08-12] MEDS ORDERED: LISINOPRIL 5 MG TABLET PO SCH (10:00)
[2020-08-12] MEDS: HEPARIN NA (PORCINE) 5,000 UNITS/ML 1ML VIAL SQ SCH ×2 (10:14→21:29)
[2020-08-12] MEDS: PANTOPRAZOLE SODIUM 40 MG VIAL IVPUSH SCH ×2 (10:14→21:29)
[2020-08-12] MEDS: SODIUM CHLORIDE 0.45% 1,000 ML IV SCH (10:15)
[2020-08-12] MEDS: METOCLOPRAMIDE HCL INJECTION 10 MG/2 ML VIAL IVPUSH SCH ×4 (10:15→21:34)
[2020-08-12] MEDS ORDERED: LISINOPRIL 5 MG TABLET PO ONE (14:06)
[2020-08-13] MEDS: SODIUM CHLORIDE 0.45% 1,000 ML IV SCH ×2 (01:10→13:15)
[2020-08-13] MEDS: INSULIN SLIDING SCALE (NOVOLOG) 1 VIAL SQ SCH ×4 (06:05→21:30)
[2020-08-13 07:51] LABS: BASO % 0.8 % (0-2.0); EOS % 1.3 % (0-4.5); HEMATOCRIT 40.1 % (35.4-49); HEMOGLOBIN 13.6 GM/dL (11.7-16.9); LYMPH % 19.6 % (8-40); MCHC 33.9 g/dl (32.0-35.9); MEAN CELL VOLUME 85.5 fl (80-96); MEAN PLT VOLUME 8.4 fl (7.5-11.1); MONO % 6.7 % (3.8-10.2); NEUT % 71.6 % (42.8-82.8); PLATELET COUNT 262 10^3/uL (134-434); RBC 4.69 M/mm3 (4.00-5.60); RDW 12.5 % (11.9-15.9); WHITE BLOOD COUNT 7.3 K/mm3 (4.0-10.0)
[2020-08-13 08:19] LABS: BLOOD UREA NITROGEN 10.3 mg/dL (7-18)
[2020-08-13 08:20] LABS: ALBUMIN 2.2 g/dl (3.4-5.0)
[2020-08-13 08:23] LABS: CREATININE 0.5 mg/dL (0.55-1.3)
[2020-08-13 08:24] LABS: TOT PROT 4.8 g/dl (6.4-8.2)
[2020-08-13] MEDS ORDERED: PANTOPRAZOLE SODIUM 40 MG VIAL IVPUSH SCH (10:00)
[2020-08-13] MEDS ORDERED: PANTOPRAZOLE 40 MG TABLET PO SCH (10:00)
[2020-08-13] MEDS ORDERED: LISINOPRIL 5 MG TABLET PO SCH (10:00)
[2020-08-13] MEDS: HEPARIN NA (PORCINE) 5,000 UNITS/ML 1ML VIAL SQ SCH ×2 (10:02→21:23)
[2020-08-13] MEDS: METOCLOPRAMIDE HCL INJECTION 10 MG/2 ML VIAL IVPUSH SCH ×4 (10:02→21:24)
[2020-08-13] MEDS ORDERED: FOSAPREPITANT DIMEGLUMINE 150 MG in SODIUM CHLORIDE 145 ML IVPB ONE ×2 (14:00→17:45)
[2020-08-13] MEDS ORDERED: ACETAMINOPHEN 1000 MG/100 ML VIAL (NON FORMULARY) IVPB PRN (14:24)
[2020-08-13] MEDS ORDERED: PT OWN MED DRAWER 7, Y5N ONE (17:41)
[2020-08-14] MEDS: METOCLOPRAMIDE HCL INJECTION 10 MG/2 ML VIAL IVPUSH SCH ×3 (05:33→21:36)
[2020-08-14] MEDS: INSULIN SLIDING SCALE (NOVOLOG) 1 VIAL SQ SCH ×4 (06:15→21:57)
[2020-08-14 08:24] LABS: BASO % 0.7 % (0-2.0); EOS % 0.7 % (0-4.5); HEMATOCRIT 37.2 % (35.4-49); HEMOGLOBIN 12.7 GM/dL (11.7-16.9); LYMPH % 15.9 % (8-40); MCHC 34.2 g/dl (32.0-35.9); MEAN CELL VOLUME 84.9 fl (80-96); MONO % 5.6 % (3.8-10.2); NEUT % 77.1 % (42.8-82.8); PLATELET COUNT 251 10^3/uL (134-434); RBC 4.38 M/mm3 (4.00-5.60); RDW 12.6 % (11.9-15.9); WHITE BLOOD COUNT 7.3 K/mm3 (4.0-10.0)
[2020-08-14 08:32] LABS: INR 1.03 (0.83-1.09); PROTHROMBIN TIME (PATIENT) 12.4 SEC (9.7-13.0)
[2020-08-14 08:50] LABS: ALBUMIN 1.9 g/dl (3.4-5.0); CALCIUM 7.7 mg/dL (8.5-10.1)
[2020-08-14 08:51] LABS: BLOOD UREA NITROGEN 10.6 mg/dL (7-18); MAGNESIUM 2.1 mg/dL (1.8-2.4)
[2020-08-14 08:53] LABS: CREATININE 0.4 mg/dL (0.55-1.3)
[2020-08-14 08:54] LABS: PHOSPHOROUS 3.1 mg/dL (2.5-4.9)
[2020-08-14 08:55] LABS: BILIRUBIN,TOTAL 0.6 mg/dL (0.2-1); TOT PROT 4.2 g/dl (6.4-8.2)
[2020-08-14] MEDS: LISINOPRIL 10 MG TABLET PO SCH (11:53)
[2020-08-14] MEDS: PANTOPRAZOLE SODIUM 40 MG VIAL IVPUSH SCH (11:53)
[2020-08-14] MEDS: SODIUM CHLORIDE 0.45% 1,000 ML IV SCH (11:53)
[2020-08-14] MEDS ORDERED: POTASSIUM CHLORIDE ORAL LIQUID 20 MEQ/15 ML PO ONE (13:19)
[2020-08-14] MEDS: HEPARIN NA (PORCINE) 5,000 UNITS/ML 1ML VIAL SQ SCH (21:34)
[2020-08-14] MEDS ORDERED: INSULIN (NOVOLOG) ASPART 100 UNITS/ML 10ML VIAL ONE (21:44)
[2020-08-15] MEDS: SODIUM CHLORIDE 0.45% 1,000 ML IV SCH ×3 (00:58→22:58)
[2020-08-15] MEDS: INSULIN SLIDING SCALE (NOVOLOG) 1 VIAL SQ SCH ×4 (07:00→21:44)
[2020-08-15] MEDS: METOCLOPRAMIDE HCL INJECTION 10 MG/2 ML VIAL IVPUSH SCH ×3 (07:06→21:46)
[2020-08-15] MEDS: LISINOPRIL 10 MG TABLET PO SCH (09:29)
[2020-08-15] MEDS: PANTOPRAZOLE SODIUM 40 MG VIAL IVPUSH SCH (09:29)
[2020-08-15] MEDS: HEPARIN NA (PORCINE) 5,000 UNITS/ML 1ML VIAL SQ SCH ×2 (09:29→21:45)
[2020-08-15 09:56] LABS: BASO % 0.2 % (0-2.0); EOS % 0.7 % (0-4.5); HEMATOCRIT 37.5 % (35.4-49); HEMOGLOBIN 12.7 GM/dL (11.7-16.9); LYMPH % 10.4 % (8-40); MCHC 33.9 g/dl (32.0-35.9); MEAN CELL VOLUME 85.5 fl (80-96); MEAN PLT VOLUME 8.1 fl (7.5-11.1); MONO % 5.3 % (3.8-10.2); NEUT % 83.4 % (42.8-82.8); PLATELET COUNT 253 10^3/uL (134-434); RBC 4.39 M/mm3 (4.00-5.60); RDW 12.5 % (11.9-15.9); WHITE BLOOD COUNT 9.7 K/mm3 (4.0-10.0)
[2020-08-15 10:09] LABS: BLOOD UREA NITROGEN 8.8 mg/dL (7-18); CALCIUM 7.7 mg/dL (8.5-10.1)
[2020-08-15 10:10] LABS: MAGNESIUM 1.9 mg/dL (1.8-2.4)
[2020-08-15 10:13] LABS: CREATININE 0.4 mg/dL (0.55-1.3)
[2020-08-15 10:14] LABS: BILIRUBIN,TOTAL 0.4 mg/dL (0.2-1); TOT PROT 4.3 g/dl (6.4-8.2)
[2020-08-15] MEDS: MAG HYDROX/AL HYDROX/SIMETH 30 ML UNIT-DOSE CUP PO PRN ×2 (11:16→18:07)
[2020-08-15] MEDS ORDERED: ONDANSETRON 4 MG/2 ML VIAL IVPUSH PRN (14:53)
[2020-08-15] MEDS ORDERED: morphine SULFATE 4 MG/ML VIAL IVPUSH PRN (14:54)
[2020-08-16] MEDS: METOCLOPRAMIDE HCL INJECTION 10 MG/2 ML VIAL IVPUSH SCH ×2 (05:53→13:49)
[2020-08-16] MEDS: INSULIN SLIDING SCALE (NOVOLOG) 1 VIAL SQ SCH ×2 (05:59→11:48)
[2020-08-16] MEDS: SODIUM CHLORIDE 0.45% 1,000 ML IV SCH ×2 (07:00→11:49)
[2020-08-16 09:25] LABS: BASO % 0.6 % (0-2.0); EOS % 1.3 % (0-4.5); HEMATOCRIT 39.9 % (35.4-49); HEMOGLOBIN 13.4 GM/dL (11.7-16.9); LYMPH % 22.9 % (8-40); MCH 28.5 pg (25.7-33.7); MCHC 33.7 g/dl (32.0-35.9); MEAN CELL VOLUME 84.6 fl (80-96); MEAN PLT VOLUME 8.3 fl (7.5-11.1); MONO % 5.6 % (3.8-10.2); NEUT % 69.6 % (42.8-82.8); PLATELET COUNT 279 10^3/uL (134-434); RBC 4.72 M/mm3 (4.00-5.60); RDW 12.6 % (11.9-15.9); WHITE BLOOD COUNT 6.3 K/mm3 (4.0-10.0)
[2020-08-16] MEDS: PANTOPRAZOLE SODIUM 40 MG VIAL IVPUSH SCH (09:44)
[2020-08-16] MEDS: LISINOPRIL 10 MG TABLET PO SCH (09:44)
[2020-08-16] MEDS: HEPARIN NA (PORCINE) 5,000 UNITS/ML 1ML VIAL SQ SCH (09:44)
[2020-08-16 09:51] LABS: CALCIUM 7.7 mg/dL (8.5-10.1)
[2020-08-16 09:52] LABS: ALBUMIN 2.1 g/dl (3.4-5.0); BLOOD UREA NITROGEN 7.3 mg/dL (7-18); MAGNESIUM 1.9 mg/dL (1.8-2.4)
[2020-08-16 09:55] LABS: CREATININE 0.5 mg/dL (0.55-1.3)
[2020-08-16 09:56] LABS: BILIRUBIN,TOTAL 0.4 mg/dL (0.2-1)
[2020-08-16 09:57] LABS: TOT PROT 4.6 g/dl (6.4-8.2)
[2020-08-16 11:34] VITALS: BMI 25.5
[2020-08-16 12:07] LABS: EPI CELLS 8 /uL (0-25.1); HYALINE CASTS 1 /uL (0-3.1); PH,URINE 6.5 (5.0-8.0); URINE APPEARANCE CLOUDY; URINE BACTERIA 267 /uL (0-1359); URINE BILIRUBIN NEGATIVE (NEGATIVE); URINE COLOR YELLOW; URINE GLUCOSE (UA) TRACE (NEGATIVE); URINE KETONE 1+ (NEGATIVE); URINE LEUK ESTERASE NEGATIVE (NEGATIVE); URINE NITRITE NEGATIVE (NEGATIVE); URINE PROTEIN 3+ (NEGATIVE); URINE RBC 31 /uL (0-23.9); URINE WBC 4 /uL (0-25.8)
[2020-08-16] MEDS ORDERED: POTASSIUM CHLORIDE TABS 20 MEQ TABLET.ER (FP) PO ONE (12:12)
[2020-08-16] MEDS ORDERED: MAGNESIUM OXIDE 400 MG TABLET (FP) PO ONE (12:12)
[2020-08-16 14:19] VITALS: BP 131/75; PULSE 76; TEMP 99.4
[2020-08-17] MEDS ORDERED: PANTOPRAZOLE 40 MG TABLET PO SCH (10:00)
== END 2020-08-16 16:38 | disposition home or self-care (01) | DRG 48 ==
LOC: JER 18:14 → INTOOBSV 22:10 → JERBED 22:10 → J6S 08-10 01:26 → OBSVTOIN 08-10 11:44
PROVIDERS: ADMIT Hospitalist; ATTEND Nurse Practitioner Acute Care
PROC: 0D9670Z Drainage of Stomach with Drainage Device, Via Natural or Artificial Opening (ICD-10-PCS; principal; 2020-08-11)
PROC: 0DB98ZX Excision of Duodenum, Via Natural or Artificial Opening Endoscopic, Diagnostic (ICD-10-PCS; 2020-08-14)
PROC: 0DB68ZX Excision of Stomach, Via Natural or Artificial Opening Endoscopic, Diagnostic (ICD-10-PCS; 2020-08-14)
DX: E11.43 Type 2 diabetes mellitus with diabetic autonomic (poly)neuropathy (principal); R11.2 Nausea with vomiting, unspecified; K21.9 Gastro-esophageal reflux disease without esophagitis; E11.9 Type 2 diabetes mellitus without complications; I10 Essential (primary) hypertension; E11.65 Type 2 diabetes mellitus with hyperglycemia; K02.9 Dental caries, unspecified; K31.84 Gastroparesis; D72.829 Elevated white blood cell count, unspecified; K29.20 Alcoholic gastritis without bleeding; R07.89 Other chest pain; F10.10 Alcohol abuse, uncomplicated; K56.609 Unspecified intestinal obstruction, unspecified as to partial versus complete obstruction
CPT/HCPCS: 36415; 70450-TC; 71045-TC-FY; 74018-TC-FY; 74019-TC-FY; 74178-TC; 80048; 80053; 80307; 81003; 82010; 82150; 82962; 83036; 83690; 83735; 84100; 84484; 85025; 85027; 85610; 85730; 86140; 87086; 88305-TC; 93005; 93010; 93306-TC; 99284-25; C9803; G0378; J0131; J1453; J1644; Q9967; U0003; U0005